=== PATIENT | female | born 1940 | race African-American/Black ===

== ENCOUNTER 2019-10-20 14:43 | Inpatient (IN) | payer OTHER ==
[2019-10-20] MEDS ORDERED: ACETAMINOPHEN 1000 MG/100 ML VIAL (NON FORMULARY) IVPB ONE (15:46)
[2019-10-20] MEDS ORDERED: SODIUM CHLORIDE 0.9% 500 ML INFUS.BAG IV ONE (15:47)
--- NOTE | 2019-10-20 15:49 | PDOC ---
History of Present Illness - General Chief Complaint: Weakness Stated Complaint: Weakness/ Time Seen by Provider: 10/20/19 15:13 History Source: Patient Exam Limitations: No Limitations - History of Present Illness Initial Comments: 79 yo F with a hx of atrial fibrillation (currently on warfarin; 5 mg q day 7.5 mg on wednesdays), HTN, CVA (1999; right sided residual weakness), HLD, CHF ( unknown EF%), and pacemaker placement presents to the emergency department with cough, generalized weakness, and SOB since this morning. Per the patient, she normally is seen at [facility] (her PMD is Dr. Fan and her fairing man is Dr. Chadwick). Her last stress test was 3 months ago and was within normal limits per the patient's daughter. She denies using home O2. She is currently on lasix 20 mg qday. Per the patient, she denies the following symptoms: fever, chills, nausea, vomiting, abdominal pain, back pain, headache, ears/nose/throat pain, visual disturbance, dysuria, diarrhea, and leg pain/ swelling. Past History - Past Medical History Allergies/Adverse Reactions: Allergies Allergy/AdvReac Type Severity Reaction Status Date / Time No Known Allergies Allergy Verified 10/20/19 15:30 Home Medications: Ambulatory Orders Amlodipine Besylate [Norvasc -] 10 mg PO DAILY 10/20/19 Furosemide [Lasix] 20 mg PO DAILY 10/20/19 Losartan Potassium [Cozaar] 100 mg PO DAILY 10/20/19 Metoprolol Tartrate 25 mg PO BID 10/20/19 Potassium Chloride 20 meq PO BID 10/20/19 Simvastatin [Zocor] 20 mg PO HS 10/20/19 Warfarin Na [Coumadin] 5 mg PO ASDIR 10/20/19 Warfarin Sodium [Coumadin] 7.5 mg PO ASDIR 10/20/19 hydrALAZINE HCL [Apresoline -] 10 mg PO TID 10/20/19 LORazepam [Lorazepam] 1 mg PO BID PRN 10/21/19 Cardiac Disorders: Yes (a fib/heart surgery?) CVA: Yes (right sided weakness.) COPD: No HTN: Yes Hypercholesterolemia: Yes - Psycho Social/Smoking Cessation Hx Smoking History: Never smoked Have you smoked in the past 12 months: No Information on smoking cessation initiated: No Hx Alcohol Use: No Drug/Substance Use Hx: No Review of Systems - Review of Systems Able to Perform ROS?: Yes Is the patient limited Kazakh proficient: No Constitutional: Yes: Fever, Weakness. No: Chills, Diaphoresis HEENTM: No: Eye Pain, Ear Pain, Nose Pain, Throat Pain, Mouth Pain Respiratory: Yes: Cough, Shortness of Breath, SOB at Rest. No: Hemoptysis Cardiac (ROS): No: Chest Pain, Lightheadedness, Palpitations, Chest Tightness ABD/GI: No: Constipated, Diarrhea, Nausea, Rectal Bleeding, Vomiting, Tarry Stools : No: Dysuria, Frequency, Flank Pain, Hematuria Musculoskeletal: No: Back Pain, Joint Pain, Neck Pain Integumentary: No: Bruising, Erythema, Rash Neurological: No: Headache, Numbness, Tingling, Tremors Psychiatric: No: Change in Appetite Endocrine: No: Unexplained Weight Gain, Unexplained Weight Loss Hematologic/Lymphatic: No: Anemia *Physical Exam - Vital Signs Last Vital Signs Temp Pulse Resp BP Pulse Ox 101.9 F H 70 16 165/93 100 10/20/19 15:38 10/20/19 15:00 10/20/19 15:00 10/20/19 15:00 10/20/19 15:00 - Physical Exam General Appearance: Yes: Nourished, Appropriately Dressed, Thin, Other (patient general appearance consistent with malaise. ). No: Apparent Distress, Intoxicated HEENT: positive: EOMI, GEORGE, Normal Voice, Symmetrical, Pharynx Normal, Scleral Icterus (R), Scleral Icterus (L), Hearing Grossly Normal. negative: Pale Conjunctivae, Muffled/Hoarse voice, Pharyngeal Erythema, Tonsillar Exudate, Tonsillar Erythema, Nasal Congestion, Rhinorrhea, Sinus Tenderness, Excessive drooling Neck: positive: Trachea midline, Supple. negative: Tender, Lymphadenopathy (R) , Lymphadenopathy (L), Tender lateral, Tender midline Respiratory/Chest: positive: Other (bilateral wheezing noted with crackles at the bases. decreased breath sounds). negative: Chest Tender, Lungs Clear, Normal Breath Sounds, Respiratory Distress, Accessory Muscle Use Cardiovascular: positive: Regular Rate, S1, S2, Systolic Murmur (holosystolic murmur), Irregularly Irregular Gastrointestinal/Abdominal: positive: Normal Bowel Sounds, Flat, Soft. negative : Tender, Distended, Guarding, Rebound Lymphatic: negative: Adenopathy Musculoskeletal: positive: Normal Inspection. negative: CVA Tenderness, Vertebral Tenderness Extremity: positive: Normal Capillary Refill, Normal Inspection, Normal Range of Motion. negative: Tender, Swelling, Calf Tenderness Integumentary: positive: Normal Color, Dry, Warm Neurologic: positive: Alert. negative: Normal Mood/Affect (malaise. weak on exam) ED Treatment Course - LABORATORY CBC & Chemistry Diagram: 10/21/19 07:15 10/21/19 07:15 - RADIOLOGY Radiology Studies Ordered: Category Date Time Status CHEST X-RAY PORTABLE* [RAD] Stat Radiology 10/20/19 15:40 Ordered Medical Decision Making - Medical Decision Making 10/20/19 17:32 79 yo F with a hx of atrial fibrillation (currently on warfarin; 5 mg q day 7.5 mg on wednesdays), HTN, CVA (1999; right sided residual weakness), HLD, CHF ( unknown EF%), and pacemaker placement presents to the emergency department with cough, generalized weakness, and SOB since this morning. Initial vitals: Initial Vital Signs Temp Pulse Resp BP Pulse Ox 98.6 F 70 16 165/93 100 10/20/19 15:00 10/20/19 15:00 10/20/19 15:00 10/20/19 15:00 10/20/19 15:00 Work up: patient presents to the emergency department with SOB in the setting of generalized weakness with a rectal temperature of 101.9 F. Will require septic work up. Likely the patient is having a CHF exacerbation given crackles and hypoxia (currently saturating at 98% on 3 liters of O2; not on home O2). Was 92 % on RA. POCUS: echo at bedside reveals grossly normal LVEF. RV grossly dilated with thickened montes. Right atrium grossly dilated. Patient has small pericardial effusion without evidence of tamponade. possible vegetations noted on the tricuspid valve. The patient's lung exam shows b lines on the right lung with no pleural effusions bilaterally. left lung does not have b lines. IVC is severely distended without collapse. Consistent with Right sided heart failure. Laboratory Tests 10/20/19 10/20/19 10/20/19 07:15 15:30 15:30 WBC 5.5 RBC 3.89 Hgb 9.9 L Hct 31.6 L MCV 81.2 MCH 25.5 L MCHC 31.4 L RDW 19.9 H Plt Count 171 MPV 9.1 Absolute Neuts (auto) 4.6 Neutrophils % 82.9 H Lymphocytes % 6.9 L Monocytes % 9.9 Eosinophils % 0.1 Basophils % 0.2 Nucleated RBC % 0 PT with INR INR PTT (Actin FS) Sodium Potassium Chloride Carbon Dioxide Anion Gap BUN Creatinine Est GFR (CKD-EPI)AfAm Est GFR (CKD-EPI)NonAf POC Glucometer Random Glucose Lactic Acid 1.8 Calcium Magnesium Total Bilirubin AST ALT Alkaline Phosphatase Creatine Kinase 144 Troponin I 0.05 B-Natriuretic Peptide Total Protein Albumin Urine Color Urine Appearance Urine pH Ur Specific [place] Urine Protein Urine Glucose (UA) Urine Ketones Urine Blood Urine Nitrite Urine Bilirubin Urine Urobilinogen Ur Leukocyte Esterase Urine WBC (Auto) Urine RBC (Auto) Urine Casts (Auto) U Epithel Cells (Auto) Urine Bacteria (Auto) Influenza A (Rapid) Influenza B (Rapid) 10/20/19 10/20/19 10/20/19 15:30 15:30 15:30 WBC RBC Hgb Hct MCV MCH MCHC RDW Plt Count MPV Absolute Neuts (auto) Neutrophils % Lymphocytes % Monocytes % Eosinophils % Basophils % Nucleated RBC % PT with INR INR PTT (Actin FS) Sodium 130 L Potassium 3.7 Chloride 94 L Carbon Dioxide 28 Anion Gap 8 BUN 6.9 L Creatinine 0.7 Est GFR (CKD-EPI)AfAm 96.86 Est GFR (CKD-EPI)NonAf 83.57 POC Glucometer Random Glucose 136 H Lactic Acid 4.8 H* Calcium 8.6 Magnesium 1.9 Total Bilirubin 1.4 H AST 41 H ALT 29 Alkaline Phosphatase 167 H Creatine Kinase Troponin I B-Natriuretic Peptide 3613.1 H Total Protein 8.2 Albumin 3.6 Urine Color Urine Appearance Urine pH Ur Specific [place] Urine Protein Urine Glucose (UA) Urine Ketones Urine Blood Urine Nitrite Urine Bilirubin Urine Urobilinogen Ur Leukocyte Esterase Urine WBC (Auto) Urine RBC (Auto) Urine Casts (Auto) U Epithel Cells (Auto) Urine Bacteria (Auto) Influenza A (Rapid) Influenza B (Rapid) 10/20/19 10/20/19 10/20/19 15:48 17:26 17:55 WBC RBC Hgb Hct MCV MCH MCHC RDW Plt Count MPV Absolute Neuts (auto) Neutrophils % Lymphocytes % Monocytes % Eosinophils % Basophils % Nucleated RBC % PT with INR 16.50 H INR 1.39 H PTT (Actin FS) 32.8 Sodium Potassium Chloride Carbon Dioxide Anion Gap BUN Creatinine Est GFR (CKD-EPI)AfAm Est GFR (CKD-EPI)NonAf POC Glucometer 153 Random Glucose Lactic Acid Calcium Magnesium Total Bilirubin AST ALT Alkaline Phosphatase Creatine Kinase Troponin I B-Natriuretic Peptide Total Protein Albumin Urine Color Urine Appearance Urine pH Ur Specific [place] Urine Protein Urine Glucose (UA) Urine Ketones Urine Blood Urine Nitrite Urine Bilirubin Urine Urobilinogen Ur Leukocyte Esterase Urine WBC (Auto) Urine RBC (Auto) Urine Casts (Auto) U Epithel Cells (Auto) Urine Bacteria (Auto) Influenza A (Rapid) Negative Influenza B (Rapid) Negative 10/20/19 18:20 WBC RBC Hgb Hct MCV MCH MCHC RDW Plt Count MPV Absolute Neuts (auto) Neutrophils % Lymphocytes % Monocytes % Eosinophils % Basophils % Nucleated RBC % PT with INR INR PTT (Actin FS) Sodium Potassium Chloride Carbon Dioxide Anion Gap BUN Creatinine Est GFR (CKD-EPI)AfAm Est GFR (CKD-EPI)NonAf POC Glucometer Random Glucose Lactic Acid Calcium Magnesium Total Bilirubin AST ALT Alkaline Phosphatase Creatine Kinase Troponin I B-Natriuretic Peptide Total Protein Albumin Urine Color Yellow Urine Appearance Clear Urine pH 5.5 Ur Specific [place] 1.014 Urine Protein 2+ H Urine Glucose (UA) Negative Urine Ketones Negative Urine Blood Trace Urine Nitrite Negative Urine Bilirubin Negative Urine Urobilinogen 0.2 Ur Leukocyte Esterase Negative Urine WBC (Auto) 0 Urine RBC (Auto) 3 Urine Casts (Auto) 0 U Epithel Cells (Auto) 0.8 Urine Bacteria (Auto) 0.7 Influenza A (Rapid) Influenza B (Rapid) BNP elevated. AST elevated with alk phos elevation suspected hepatic etiology. lactic acid grossly elevated with hyponatremia likely secondary to SIADH in setting of PNA. CXR shows gross cardiomegaly and pericardial effusion that cannot be excluded. Because of POCUS findings, a CT chest was obtained. findings include the following: "right basilar infiltrate seen with an opacity noted 3x2.3 cm containing air bronchograms is seen within the superior segment of the right lower lobe. 0.9 cm subpleural opacity is seen within the right upper lobe laterally. Small pericardial effusion noted with the main pulmonary artery dilated with a 3.6 cm consistent with increased pulmonary arterial pressure. Distension of the hepatic veins and partially imaged inferior vena cava presumably secondary to cardiac dysfunction. small amount of robbin-hepatic aneurysmal dilatation of the ascending aorta with a 4 cm diameter. " vancomycin, ceftriaxone, and azithromycin were started to cover community acquired PNA and suspected endocarditis with staph aureus coverage EKG: ventricular rate is 68 bpm. QRS is 112 ms. Ventricular paced rhythm. Tall t waves in leads V4-V6 with pace spikes prior to QRS. biphasic t wave in V2 and TWI in V3. Patient to be admitted to the hospital with PNA with sepsis features with hypoxic respiratory failure. Dispo: Admit 10/21/19 10:38 Discharge - Discharge Information Problems reviewed: Yes Clinical Impression/Diagnosis: Pneumonia - Follow up/Referral - Patient Discharge Instructions - Post Discharge Activity
[2019-10-20] MEDS ORDERED: ACETAMINOPHEN INJECTION 100 ML IVPB ONE (15:57)
[2019-10-20 16:30] LABS: BASO % 0.2 % (0-2.0); EOS % 0.1 % (0-4.5); HEMATOCRIT 31.6 % (32.4-45.2); HEMOGLOBIN 9.9 GM/dL (10.7-15.3); LYMPH % 6.9 % (8-40); MCH 25.5 pg (25.7-33.7); MCHC 31.4 g/dl (32.0-36.0); MEAN CELL VOLUME 81.2 fl (80-96); MEAN PLT VOLUME 9.1 fl (7.5-11.1); MONO % 9.9 % (3.8-10.2); NEUT % 82.9 % (42.8-82.8); PLATELET COUNT 171 K/MM3 (134-434); RBC 3.89 M/mm3 (3.60-5.2); RDW 19.9 % (11.6-15.6); WHITE BLOOD COUNT 5.5 K/mm3 (4.0-10.0)
--- NOTE | 2019-10-20 16:47 | PDOC ---
Attending Attestation - Resident Resident Name: Adrián Pierce - ED Attending Attestation I have performed the following: I have examined & evaluated the patient, The case was reviewed & discussed with the resident, I agree w/resident's findings & plan - HPI HPI: 10/20/19 16:47 79-year-old female with history of atrial fibrillation on Coumadin, CHF, hypertension, CVA with residual right lower and upper extremity weakness, pacemaker placement presenting with cough shortness of breath subjective fevers and chills since last night. no sick contacts, no recent travel. 10/20/19 19:34 - Physicial Exam PE: 10/20/19 16:46 Agree with the resident's HPI and PE as documented in the electronic medical record. moderate respiratory distress, EOMI, PERRL, nl conjunctiva, anicteric; neck supple. lungs with bilateral wheezing and crackles/rhonchi, +tachypneic, RRR, abdomen soft nontender. no rebound, guarding. Back nontender. MARTINS x4, +right sided weakness (chronically). No peripheral edema. normal color for ethnicity, WWP. no rash. no calf tenderness 10/20/19 19:49 - Medical Decision Making 10/20/19 16:46 Vital Signs Temp Pulse Resp BP Pulse Ox 101.9 F H 70 16 165/93 92 L 10/20/19 15:38 10/20/19 15:00 10/20/19 15:00 10/20/19 15:00 10/20/19 15:30 ddx influenza, pna, viral syndrome, pulm edema, CHF, ptx, pleurisy, anemia,, electrolyte/metabolic derangements. Vital signs notable for fever, T-max 1-1.9 rectally, mildly hypertensive, SPO2 90% on room air will place on supplemental oxygen. No tachycardia. Malaised appearing. We will pursue septic work-up including cultures, lactic, came back elevated at 4.8. Will be copiously hydrated. Flu is negative, chest x-ray with cardiomegaly Laboratory results with mild anemia, no baseline no evidence of bleeding. Hyponatremia, troponins negative and LFTs are within normal limits. flu neg. initial lactic elevated 4.8 likely from infection, given IVF gently (h/o chf, will give only 500cc and fluid challenge,, and reassess; initial 1 L cancelled, ordered initially due to sepsis) - no further fluids as risk of pulm edema, ok with 500cc challenge and recheck and trend lactic. blood cultures pending. pneumonia workup sent, urine ag for legionella and pneumo IV abx- ceftriaxone and azithromycin for CAP and vancomycin (tricuspid thickening, unable to rule out the vegetation, as pt ccame from [place] years ago ) pocus with right sided b lines, unilateral; no effusion, no sig B lines, kirby with pneumonia pocus cardiac with normal LV function,, but very dilated and enlarged RV/RA compared to contralateral, appears compensated/old due to presence of chordae tendinae. small /trace pericardial effusion. admit for CAP/pneumonia, hypoxia, IV abx, hydration, O2 supplementation and continued medical management. admitting to [facility]. 10/20/19 19:46 10/20/19 19:49 10/20/19 19:50 Heart Score/ECG Review #1 ECG reviewed & interpreted by me at: 17:55 General ECG Interpretation: Sinus Rhythm, Normal Rate Compared to previous ECG there are: Previous ECG unavail 10/20/19 18:51 Sinus rhythm at 60 bpm, left bundle branch appearance, pacemaker is in place, nonspecific T wave abnormalities, limitations due to the artifact,
[2019-10-20 16:52] LABS: ALBUMIN 3.6 g/dl (3.4-5.0); BILIRUBIN,TOTAL 1.4 mg/dL (0.2-1); BLOOD UREA NITROGEN 6.9 mg/dL (7-18); CALCIUM 8.6 mg/dL (8.5-10.1); CREATININE 0.7 mg/dL (0.55-1.3); MAGNESIUM 1.9 mg/dL (1.8-2.4); POTASSIUM 3.7 mmol/L (3.5-5.1); TOT PROT 8.2 g/dl (6.4-8.2)
[2019-10-20] MEDS ORDERED: CEFTRIAXONE 1,000 MG in DEXTROSE 5%-WATER - 50 ML IVPB ONE (17:17)
[2019-10-20] MEDS ORDERED: AZITHROMYCIN IVPB 500 MG in DEXTROSE 5%-WATER - 250 ML IVPB ONE (17:17)
[2019-10-20] MEDS ORDERED: VANCOMYCIN 1,000 MG in DEXTROSE 5%-WATER - 250 ML IVPB ONE (17:17)
[2019-10-20] MEDS ORDERED: ALBUTEROL SO4 2.5/IPRATROPIUM 0.5 INH SOL 3 ML VIAL.NEB. NEB ONE ×3 (17:17→18:00)
[2019-10-20] MEDS ORDERED: SODIUM CHLORIDE 500 ML IV STA (17:27)
[2019-10-20] MEDS ORDERED: CEFTRIAXONE 1 GM/50 ML BAG ONE (17:41)
[2019-10-20] MEDS ORDERED: VANCOMYCIN 1 GRAM (PRE-DOCKED) 1,000 MG/250 ML BAG IVPB ONE (17:41)
[2019-10-20] MEDS ORDERED: AZITHROMYCIN IVPB 500 MG/250 ML BAG IVPB ONE (17:41)
[2019-10-20 18:36] LABS: INR 1.39 (0.83-1.09); PROTHROMBIN TIME (PATIENT) 16.5 SEC (9.7-13.0)
[2019-10-20 18:39] LABS: ACTIVATED PTT 32.8 SECONDS (25.2-36.5)
[2019-10-20 18:45] LABS: EPI CELLS 0.8 /HPF (0-5/HPF); HYALINE CASTS 0 /lpf (0-8); PH,URINE 5.5 (5.0-8.0); URINE APPEARANCE CLEAR; URINE BACTERIA 0.7 /hpf (NEGATIVE); URINE BILIRUBIN NEGATIVE (NEGATIVE); URINE COLOR YELLOW; URINE GLUCOSE (UA) NEGATIVE (NEGATIVE); URINE KETONE NEGATIVE (NEGATIVE); URINE LEUK ESTERASE NEGATIVE (NEGATIVE); URINE NITRITE NEGATIVE (NEGATIVE); URINE PROTEIN 2+ (NEGATIVE); URINE RBC 3 /hpf (0-4); URINE UROBILINOGEN 0.2 mg/dL (0.2-1.0); URINE WBC 0 /hpf (0-5)
--- NOTE | 2019-10-20 20:50 | HP ---
CHIEF COMPLAINT: Fevers PCP: Dr. Fan HISTORY OF PRESENT ILLNESS: Patient is limited grenadian speaker so family at bedside helped translate. 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 Family endorses that patient had shortness of breath, was more lethargic today, had no appetite and poor PO intake so they brought her to [facility]. Fever has been accompanied with a nonproductive cough. Patient did not measure her temperatures at home. Patient has not had any rhinorrhea or congestion since subjective fevers began. Patient endorses nausea and vomiting over the last day , but unable to quantify how many times she has had emesis and characterize quality of it. Patient denies diarrhea and abdominal pain. Of note family mentions that patient has a sick contact at home, a toddler (age 5) who the patient is staying with who presented to the [facility] with fever of 103 today. Patient denies any chest pain, pleuritic pain, headaches, myalgias, dysuria and hematuria. ER course was notable for: (1)Rectal temperature showed 101.9. Patient was given azithromycin 500 mg, ceftriaxone 1 gram, and Vancomycin 1 gram. (2)EKG showed Sinus rhythm at 60 bpm, left bundle branch appearance, pacemaker is in place, nonspecific T wave abnormalities, limitations due to the artifact (3)Chest X-Ray showed Gross cardiomegaly and pericardial effusion cannot be excluded, and chest CT showed: Right basilar infiltrates infiltrate in the upper lobe. 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 cervical spine surgery Social History: Smoking:denies Alcohol:denies Drugs: denies Allergies No Known Allergies Allergy (Verified 10/20/19 15:30) HOME MEDICATIONS: Home Medications Medication Instructions Recorded Amlodipine Besylate [Norvasc -] 10 mg PO DAILY 10/20/19 Furosemide [Lasix] 20 mg PO DAILY 10/20/19 Losartan Potassium [Cozaar] 100 mg PO DAILY 10/20/19 Metoprolol Tartrate 25 mg PO BID 10/20/19 Potassium Chloride 20 meq PO BID 10/20/19 Simvastatin [Zocor] 20 mg PO HS 10/20/19 Warfarin Na [Coumadin] 5 mg PO ASDIR 10/20/19 Warfarin Sodium [Coumadin] 7.5 mg PO ASDIR 10/20/19 hydrALAZINE HCL [Apresoline -] 10 mg PO TID 10/20/19 REVIEW OF SYSTEMS CONSTITUTIONAL: fever, loss of appetite Absent: chills, diaphoresis, generalized weakness, malaise, weight change HEENT: Absent: rhinorrhea, nasal congestion, throat pain, throat swelling, difficulty swallowing, mouth swelling, ear pain, eye pain, visual changes CARDIOVASCULAR: Absent: chest pain, syncope, palpitations, irregular heart rate, lightheadedness , peripheral edema RESPIRATORY: shortness of breath, cough, Absent: dyspnea with exertion, orthopnea, wheezing, stridor, hemoptysis GASTROINTESTINAL:, nausea, vomiting Absent: abdominal pain, abdominal distension, diarrhea, constipation, melena, hematochezia GENITOURINARY: Absent: dysuria, frequency, urgency, hesitancy, hematuria, flank pain, genital pain MUSCULOSKELETAL: Absent: myalgia, arthralgia, joint swelling, back pain, neck pain SKIN: Absent: rash, itching, pallor ENDOCRINE: Absent: unexplained weight gain, unexplained weight loss, heat intolerance, cold intolerance NEUROLOGIC: Absent: headache, focal weakness or paresthesias, dizzines PHYSICAL EXAMINATION Vital Signs - 24 hr 10/20/19 10/20/19 10/20/19 15:00 15:30 15:38 Temperature 98.6 F 101.9 F H Pulse Rate 70 Pulse Rate [ Apical] Respiratory 16 Rate Blood Pressure 165/93 Blood Pressure [Right Arm] O2 Sat by Pulse 100 92 L Oximetry (%) 10/20/19 18:29 Temperature 98.3 F Pulse Rate Pulse Rate [ 79 Apical] Respiratory 19 Rate Blood Pressure Blood Pressure 154/85 [Right Arm] O2 Sat by Pulse 96 Oximetry (%) GENERAL: Awake, alert, and fully oriented, in no acute distress. HEAD: Normal with no signs of trauma. EYES: Pupils equal, round and reactive to light, extraocular movements intact, sclera anicteric, conjunctiva clear. No lid lag. EARS, NOSE, THROAT: Moist mucous membranes. NECK: Normal range of motion, supple without lymphadenopathy, JVD, or masses. LUNGS: Decreased breath sounds in right lung, wheezing heard throughout left lung. HEART: Regular rate and rhythm, normal S1 and S2 without murmur, rub or gallop. ABDOMEN: Soft, nontender, not distended, normoactive bowel sounds, no guarding, no rebound, no masses. No hepatomegaly or splenomegaly. MUSCULOSKELETAL: Normal range of motion at all joints. No bony deformities or tenderness. UPPER EXTREMITIES: 2+ pulses, warm, well-perfused. No cyanosis. No clubbing. No peripheral edema. LOWER EXTREMITIES: 2+ pulses, warm, well-perfused. No calf tenderness. No peripheral edema. NEUROLOGICAL: Cranial nerves II-XII intact. Normal speech. Normal gait. PSYCHIATRIC: Cooperative. Good eye contact. Appropriate mood and affect. SKIN: Warm, dry, normal turgor, no rashes or lesions noted, normal capillary refill. Laboratory Results - last 24 hr 10/20/19 10/20/19 10/20/19 15:30 15:30 15:30 WBC 5.5 RBC 3.89 Hgb 9.9 L Hct 31.6 L MCV 81.2 MCH 25.5 L MCHC 31.4 L RDW 19.9 H Plt Count 171 MPV 9.1 Absolute Neuts (auto) 4.6 Neutrophils % 82.9 H Lymphocytes % 6.9 L Monocytes % 9.9 Eosinophils % 0.1 Basophils % 0.2 Nucleated RBC % 0 PT with INR INR PTT (Actin FS) Sodium 130 L Potassium 3.7 Chloride 94 L Carbon Dioxide 28 Anion Gap 8 BUN 6.9 L Creatinine 0.7 Est GFR (CKD-EPI)AfAm 96.86 Est GFR (CKD-EPI)NonAf 83.57 POC Glucometer Random Glucose 136 H Lactic Acid Calcium 8.6 Magnesium 1.9 Total Bilirubin 1.4 H AST 41 H ALT 29 Alkaline Phosphatase 167 H Creatine Kinase 144 Troponin I 0.05 B-Natriuretic Peptide Total Protein 8.2 Albumin 3.6 Urine Color Urine Appearance Urine pH Ur Specific Vista Urine Protein Urine Glucose (UA) Urine Ketones Urine Blood Urine Nitrite Urine Bilirubin Urine Urobilinogen Ur Leukocyte Esterase Urine WBC (Auto) Urine RBC (Auto) Urine Casts (Auto) U Epithel Cells (Auto) Urine Bacteria (Auto) Influenza A (Rapid) Influenza B (Rapid) 10/20/19 10/20/19 10/20/19 15:30 15:30 15:48 WBC RBC Hgb Hct MCV MCH MCHC RDW Plt Count MPV Absolute Neuts (auto) Neutrophils % Lymphocytes % Monocytes % Eosinophils % Basophils % Nucleated RBC % PT with INR INR PTT (Actin FS) Sodium Potassium Chloride Carbon Dioxide Anion Gap BUN Creatinine Est GFR (CKD-EPI)AfAm Est GFR (CKD-EPI)NonAf POC Glucometer Random Glucose Lactic Acid 4.8 H* Calcium Magnesium Total Bilirubin AST ALT Alkaline Phosphatase Creatine Kinase Troponin I B-Natriuretic Peptide 3613.1 H Total Protein Albumin Urine Color Urine Appearance Urine pH Ur Specific Vista Urine Protein Urine Glucose (UA) Urine Ketones Urine Blood Urine Nitrite Urine Bilirubin Urine Urobilinogen Ur Leukocyte Esterase Urine WBC (Auto) Urine RBC (Auto) Urine Casts (Auto) U Epithel Cells (Auto) Urine Bacteria (Auto) Influenza A (Rapid) Negative Influenza B (Rapid) Negative 10/20/19 10/20/19 10/20/19 17:26 17:55 18:20 WBC RBC Hgb Hct MCV MCH MCHC RDW Plt Count MPV Absolute Neuts (auto) Neutrophils % Lymphocytes % Monocytes % Eosinophils % Basophils % Nucleated RBC % PT with INR 16.50 H INR 1.39 H PTT (Actin FS) 32.8 Sodium Potassium Chloride Carbon Dioxide Anion Gap BUN Creatinine Est GFR (CKD-EPI)AfAm Est GFR (CKD-EPI)NonAf POC Glucometer 153 Random Glucose Lactic Acid Calcium Magnesium Total Bilirubin AST ALT Alkaline Phosphatase Creatine Kinase Troponin I B-Natriuretic Peptide Total Protein Albumin Urine Color Yellow Urine Appearance Clear Urine pH 5.5 Ur Specific Vista 1.014 Urine Protein 2+ H Urine Glucose (UA) Negative Urine Ketones Negative Urine Blood Trace Urine Nitrite Negative Urine Bilirubin Negative Urine Urobilinogen 0.2 Ur Leukocyte Esterase Negative Urine WBC (Auto) 0 Urine RBC (Auto) 3 Urine Casts (Auto) 0 U Epithel Cells (Auto) 0.8 Urine Bacteria (Auto) 0.7 Influenza A (Rapid) Influenza B (Rapid) Imaging: Chest X-ray: Gross cardiomegaly and pericardial effusion cannot be excluded Chest CT: Right basilar infiltrate Note is also made of a 3 x 2.3 cm opacity containing air bronchograms within the superior segment of the right lower lobe probably representing an additional infiltrate, and much less likely a pulmonary nodule. Correlation with 3 month follow-up CT is suggested to document resolution. Note is also made of a 0.9 cm right upper lobe subpleural opacity laterally which may represent focal scarring, atelectasis versus a groundglass pulmonary nodule. Reevaluation at the time of 3 month follow-up CT is suggested. Marked cardiomegaly. Small pericardial effusion. Dilated main pulmonary artery consistent with increased pulmonary arterial pressure. There is distention of the hepatic veins and partially imaged inferior vena cava secondary to cardiac dysfunction. Bilateral flank subcutaneous edema. Small amount of perihepatic ascites. Borderline fusiform aneurysmal dilatation of the ascending aorta with a 4 cm diameter. 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 1)Sepsis secondary to community-acuired pneumonia with hypoxic respiratory failure -Fever of 101.9F -Lactic initially 4.8 and trended up on repeat. F/U Repeat lactic -F/U Blood culture -F/U Sputum culture -F/U legionalla antigen -F/U HIV serology -F/U Hep B and Hep C panel -Ceftriaxone 2 gram IV Q24 hours. -Azithromycin 500 mg IV Daily -Given unknown cardiac function, will give gentle hydration and hold lasix. 2)Acute Respiratory Distress -Patient on 2L NC and saturating at 98% -F/U ABG 3)POCUS showed possible cardiac valvular vegetations -Transthoracic echo -Cardiology evaluation 4)AFib on Coumadin with subtherapeutic INR -Warfarin 5 mg PO Daily for 5 days a week -Warfarin 7.5 mg PO daily for 2 days a week -Heparin drip as we bridge -Repeat INR/PT 5)Normocytic anemia -Follow CBC -F/U Iron studies -F/U TSH 6)Transaminits -Sergio avoid hepatotoxic agents -RUQ sonogram -Hepatitis panel 7)Hyponatremia -Na of 130 on admissoin -Possible SIADH -F/U Urine osmole, serum osmoles, urine electrolytes, TSH DVT Prophylaxis: Heparin Drip F: Oral Hydration E: Monitor CMP N: Regular diet Dispo: Admitted to medicine. Visit type - Emergency Visit Emergency Visit: Yes ED Registration Date: 10/20/19 Care time: The patient presented to the Emergency Department on the above date and was hospitalized for further evaluation of their emergent condition. - New Patient This patient is new to me today: Yes Date on this admission: 10/21/19 - Critical Care Critical Care patient: No ATTENDING PHYSICIAN STATEMENT I saw and evaluated the patient. I reviewed the resident's note and discussed the case with the resident. I agree with the resident's findings and plan as documented. SUBJECTIVE: OBJECTIVE: ASSESSMENT AND PLAN:
--- NOTE | 2019-10-20 21:47 | PN ---
Teaching Attending Note Name of Resident: Love Aldana ATTENDING PHYSICIAN STATEMENT I saw and evaluated the patient. I reviewed the resident's note and discussed the case with the resident. I agree with the resident's findings and plan as documented. SUBJECTIVE: 79 yo Woman from [facility] with a hx of atrial fibrillation on coumadin, HTN, CVA w/ right sided residual weakness, HLD, CHF, s/p pacemaker placement presents complaining of productive cough, weakness and shortness of breath since 2018 a.m. No recent travels or sick contacts. OBJECTIVE: Last Vital Signs Temp Pulse Resp BP Pulse Ox 99.5 F 70 19 134/69 97 10/20/19 21:16 10/20/19 21:11 10/20/19 21:11 10/20/19 21:11 10/20/19 21:11 GENERAL: Well developed, well nourished. Awake and alert. No acute distress. HEENT: Normocephalic, atraumatic. PERRLA, EOMI. No conjunctival pallor. Sclera are non- icteric. Moist mucous membranes. Oropharynx is clear. NECK: Supple. Full ROM. No JVD. Carotid pulses 2+ and symmetric, without bruits. No thyromegaly. No lymphadenopathy. CARDIOVASCULAR: Regular rate and rhythm. No murmurs, rubs, or gallops. Distal pulses are 2+ and symmetric. PULMONARY: No evidence of respiratory distress. Lungs clear to auscultation bilaterally. Right middle and lower lobe crackles/rhonchi ABDOMINAL: Soft. Non-tender. Non-distended. No rebound or guarding. No organomegaly. Normoactive bowel sounds. MUSCULOSKELETAL Normal range of motion at all joints. No bony deformities or tenderness. No CVA tenderness. EXTREMITIES: No cyanosis. No clubbing. No edema. No calf tenderness. SKIN: Warm and dry. Normal capillary refill. No rashes. No jaundice. PSYCHIATRIC: Cooperative. Good eye contact. Appropriate mood and affect. Abnormal Lab Results 10/20/19 10/20/19 10/20/19 15:30 15:30 15:30 Hgb 9.9 L Hct 31.6 L MCH 25.5 L MCHC 31.4 L RDW 19.9 H Neutrophils % 82.9 H Lymphocytes % 6.9 L PT with INR INR Sodium 130 L Chloride 94 L BUN 6.9 L Random Glucose 136 H Lactic Acid 4.8 H* Total Bilirubin 1.4 H AST 41 H Alkaline Phosphatase 167 H B-Natriuretic Peptide Urine Protein 10/20/19 10/20/19 10/20/19 15:30 17:55 18:20 Hgb Hct MCH MCHC RDW Neutrophils % Lymphocytes % PT with INR 16.50 H INR 1.39 H Sodium Chloride BUN Random Glucose Lactic Acid Total Bilirubin AST Alkaline Phosphatase B-Natriuretic Peptide 3613.1 H Urine Protein 2+ H 10/20/19 20:15 Hgb Hct MCH MCHC RDW Neutrophils % Lymphocytes % PT with INR INR Sodium Chloride BUN Random Glucose Lactic Acid 5.0 H* Total Bilirubin AST Alkaline Phosphatase B-Natriuretic Peptide Urine Protein Imaging studies reviewed Chest CT without contrast appreciatedapproximately 3 x 2.3 cm opacity containing air bronchograms is seen within the superior segment of the right lower lobe. Additional mild patchy opacities seen within the basilar segments of the right lower lobe consistent with infiltrates ASSESSMENT AND PLAN: Sepsis secondary to community-acquired pneumonia with right with hypoxic resp failure- fever of 101F, lactic acidosis blood cultures sputum culture urine legionella antigen urine pneumococcal ag ceftriaxone 2G IV q24hrs azithromycin 500mg IV daily supplemental oxygen via nasal cannula Repeat ABG Repeat lactic acid HIV serology, hepatitis B and C serology #Rule out cardiac valvular vegetations Transthoracic echo Cardiology evaluation #Atrial fibrillation On anticoagulation- subtherapeutic inr Continue with heparin drip Continue with home dose Coumadin Morning INR/PT #HTN #CVA with right sided residual weakness #Normocytic anemia Trend CBC Send iron studies Send ferritin Send vitamin B12 Send TSH #Transaminitis Avoid hepatotoxins Liver sonogram Viral hepatitis panels were ordered #Hyponatremiasuspect possible SIADH especially in light of pneumonia Send urine osmoles, serum osmoles, urine lites, TSH DVT prophylaxisheparin drip
[2019-10-20] MEDS ORDERED: HEPARIN NA (PORCINE) 5,000 UNITS/ML 1ML VIAL IVPUSH PRN ×2 (23:07)
[2019-10-21] MEDS ORDERED: CEFTRIAXONE 1 GM in DEXTROSE 5%-WATER - 50 ML IVPB ONE (00:51)
[2019-10-21] MEDS: HEPARIN - 25,000 UNIT in SODIUM CHLORIDE 495 ML IV SCH ×2 (02:07→08:48)
[2019-10-21] MEDS ORDERED: SODIUM CHLORIDE 1,000 ML IV SCH (06:15)
[2019-10-21] MEDS: hydrALAZINE HCL 10 MG TABLET PO SCH ×3 (06:26→22:23)
[2019-10-21 08:11] LABS: BASO % 0.3 % (0-2.0); HEMATOCRIT 30.9 % (32.4-45.2); HEMOGLOBIN 9.9 GM/dL (10.7-15.3); MCH 25.8 pg (25.7-33.7); MCHC 32.2 g/dl (32.0-36.0); MEAN CELL VOLUME 80.1 fl (80-96); MEAN PLT VOLUME 9.6 fl (7.5-11.1); MONO % 15.8 % (3.8-10.2); NEUT % 66.9 % (42.8-82.8); PLATELET COUNT 159 K/MM3 (134-434); RBC 3.86 M/mm3 (3.60-5.2); RDW 19.7 % (11.6-15.6)
[2019-10-21 08:33] LABS: INR 1.46 (0.83-1.09); PROTHROMBIN TIME (PATIENT) 17.3 SEC (9.7-13.0)
[2019-10-21 08:44] LABS: BILIRUBIN,DIRECT 0.4 mg/dL (0.0-0.2)
[2019-10-21] MEDS: AZITHROMYCIN IVPB 500 MG/250 ML BAG IVPB SCH (09:20)
[2019-10-21] MEDS: amLODIPine BESYLATE 10 MG TABLET (FP) PO SCH (09:24)
[2019-10-21] MEDS: METOPROLOL TARTRATE 25 MG TABLET (FP) PO SCH ×2 (09:24→22:23)
[2019-10-21] MEDS: LOSARTAN POTASSIUM 50 MG TABLET (FP) PO SCH (09:24)
[2019-10-21] MEDS: LORazepam 1 MG TABLET PO PRN ×2 (09:24→22:24)
[2019-10-21 09:30] LABS: ALBUMIN 3.3 g/dl (3.4-5.0); BILIRUBIN,TOTAL 1.1 mg/dL (0.2-1); BLOOD UREA NITROGEN 4.4 mg/dL (7-18); CALCIUM 8.2 mg/dL (8.5-10.1); CREATININE 0.4 mg/dL (0.55-1.3); TOT PROT 7.8 g/dl (6.4-8.2)
[2019-10-21 09:48] LABS: POTASSIUM 2.8 mmol/L (3.5-5.1)
[2019-10-21] MEDS ORDERED: CEFTRIAXONE 1 GM in DEXTROSE 5%-WATER - 50 ML IVPB SCH (10:00)
[2019-10-21] MEDS ORDERED: FUROSEMIDE 20 MG TABLET (FP) PO SCH (10:00)
--- NOTE | 2019-10-21 10:19 | EKG ---
Test Reason : Blood Pressure : / mmHG Vent. Rate : 068 BPM Atrial Rate : 061 BPM P-R Int : 000 ms QRS Dur : 112 ms QT Int : 432 ms P-R-T Axes : 000 000 093 degrees QTc Int : 459 ms Ventricular-paced rhythm ABNORMAL ECG Confirmed by BRITTANY EMANUEL MD ([id number]) on 10/21/2019 10:19:12 AM Referred By: Confirmed By:BRITTANY EMANUEL MD
--- NOTE | 2019-10-21 10:20 | EKG ---
Test Reason : Blood Pressure : / mmHG Vent. Rate : 117 BPM Atrial Rate : 156 BPM P-R Int : 000 ms QRS Dur : 134 ms QT Int : 250 ms P-R-T Axes : 000 -85 256 degrees QTc Int : 348 ms POOR DATA QUALITY, INTERPRETATION MAY BE ADVERSELY AFFECTED UNDETERMINED RHYTHM LEFT AXIS DEVIATION NON-SPECIFIC INTRA-VENTRICULAR CONDUCTION BLOCK INFERIOR INFARCT , AGE UNDETERMINED T WAVE ABNORMALITY, CONSIDER ANTERIOR ISCHEMIA ABNORMAL ECG Confirmed by ADELFO BROTHERS, BRITTANY ([id number]) on 10/21/2019 10:19:47 AM Referred By: Confirmed By:BRITTANY EMANUEL MD
[2019-10-21] MEDS ORDERED: POTASSIUM CHLORIDE TABS 20 MEQ TABLET.ER (FP) PO ONE ×2 (12:44→23:17)
[2019-10-21] MEDS: KCL 10 MEQ IVPB 10 MEQ/100 ML INFUS.BAG IVPB SCH ×3 (13:17→16:42)
[2019-10-21] MEDS ORDERED: cefTRIAXone SODIUM 1 GM VIAL ONE (16:40)
[2019-10-21] MEDS ORDERED: DEXTROSE 5%-WATER - 50 ML IVPB ONE (16:40)
[2019-10-21] MEDS: CEFTRIAXONE 1 GM in DEXTROSE 5%-WATER - 50 ML IVPB SCH (16:42)
[2019-10-21] MEDS ORDERED: MAGNESIUM SULF 50% (8.12 MEQ/2 ML-1 GM VIAL) IVPB ONE (17:29)
[2019-10-21] MEDS ORDERED: WARFARIN NA 5 MG TABLET (UD) PO SCH (18:00)
--- NOTE | 2019-10-21 18:15 | PN ---
Progress Note (short form) - Note Progress Note: SUBJECTIVE: Complains of Cough, Fevers. No CP/hemoptysis. OBJECTIVE: Afebrile, Hemodynamically Stable. AAO x 2 (baseline mental status unclear) Last Vital Signs Temp Pulse Resp BP Pulse Ox 99.0 F 72 18 131/76 95 10/21/19 15:19 10/21/19 15:19 10/21/19 15:19 10/21/19 15:19 10/21/19 10:00 HEENT - Atramatic, Normocephalic. Heart - S1, S2, SM Lungs - R sided crackles. Abdomen - Soft non-tender. Bowel Sounds normal. Extremities - no edema, no calf tenderness. Laboratory Results - last 24 hr 10/20/19 10/20/19 10/20/19 07:15 09:08 17:55 WBC RBC Hgb Hct MCV MCH MCHC RDW Plt Count MPV Absolute Neuts (auto) Neutrophils % Lymphocytes % Monocytes % Eosinophils % Basophils % Nucleated RBC % PT with INR 16.50 H INR 1.39 H PTT (Actin FS) 32.8 Sodium Potassium Chloride Carbon Dioxide Anion Gap BUN Creatinine Est GFR (CKD-EPI)AfAm Est GFR (CKD-EPI)NonAf Random Glucose Lactic Acid 1.8 Calcium Iron TIBC Iron Saturation Unsaturated IBC Ferritin Total Bilirubin Direct Bilirubin AST ALT Alkaline Phosphatase Total Protein Albumin Vitamin B12 Serum Folate TSH Urine Color Urine Appearance Urine pH Ur Specific [place] Urine Protein Urine Glucose (UA) Urine Ketones Urine Blood Urine Nitrite Urine Bilirubin Urine Urobilinogen Ur Leukocyte Esterase Urine WBC (Auto) Urine RBC (Auto) Urine Casts (Auto) U Epithel Cells (Auto) Urine Bacteria (Auto) Urine Osmolality Ur Random Sodium HIV 1&2 Antibody Screen Negative HIV P24 Antigen Negative 10/20/19 10/20/19 10/21/19 18:20 20:15 06:00 WBC RBC Hgb Hct MCV MCH MCHC RDW Plt Count MPV Absolute Neuts (auto) Neutrophils % Lymphocytes % Monocytes % Eosinophils % Basophils % Nucleated RBC % PT with INR INR PTT (Actin FS) Sodium Potassium Chloride Carbon Dioxide Anion Gap BUN Creatinine Est GFR (CKD-EPI)AfAm Est GFR (CKD-EPI)NonAf Random Glucose Lactic Acid 5.0 H* Calcium Iron TIBC Iron Saturation Unsaturated IBC Ferritin 40.7 Total Bilirubin Direct Bilirubin 0.4 H AST ALT Alkaline Phosphatase Total Protein Albumin Vitamin B12 Serum Folate TSH Urine Color Yellow Urine Appearance Clear Urine pH 5.5 Ur Specific [place] 1.014 Urine Protein 2+ H Urine Glucose (UA) Negative Urine Ketones Negative Urine Blood Trace Urine Nitrite Negative Urine Bilirubin Negative Urine Urobilinogen 0.2 Ur Leukocyte Esterase Negative Urine WBC (Auto) 0 Urine RBC (Auto) 3 Urine Casts (Auto) 0 U Epithel Cells (Auto) 0.8 Urine Bacteria (Auto) 0.7 Urine Osmolality Ur Random Sodium HIV 1&2 Antibody Screen HIV P24 Antigen 10/21/19 10/21/19 10/21/19 07:15 07:15 07:15 WBC 5.0 RBC 3.86 Hgb 9.9 L Hct 30.9 L MCV 80.1 MCH 25.8 MCHC 32.2 RDW 19.7 H Plt Count 159 MPV 9.6 Absolute Neuts (auto) 3.4 Neutrophils % 66.9 Lymphocytes % 17.0 D Monocytes % 15.8 H Eosinophils % 0.0 D Basophils % 0.3 Nucleated RBC % 0 PT with INR 17.30 H INR 1.46 H PTT (Actin FS) Sodium 130 L Potassium 2.8 L* Chloride 92 L Carbon Dioxide 31 Anion Gap 7 L BUN 4.4 L Creatinine 0.4 L Est GFR (CKD-EPI)AfAm 116.44 Est GFR (CKD-EPI)NonAf 100.47 Random Glucose 89 Lactic Acid Calcium 8.2 L Iron 20 L TIBC 390 Iron Saturation 5 L Unsaturated IBC 370 H Ferritin Total Bilirubin 1.1 H Direct Bilirubin AST 46 H ALT 27 Alkaline Phosphatase 148 H Total Protein 7.8 Albumin 3.3 L Vitamin B12 659 Serum Folate 6 TSH 0.67 Urine Color Urine Appearance Urine pH Ur Specific [place] Urine Protein Urine Glucose (UA) Urine Ketones Urine Blood Urine Nitrite Urine Bilirubin Urine Urobilinogen Ur Leukocyte Esterase Urine WBC (Auto) Urine RBC (Auto) Urine Casts (Auto) U Epithel Cells (Auto) Urine Bacteria (Auto) Urine Osmolality Ur Random Sodium HIV 1&2 Antibody Screen HIV P24 Antigen 10/21/19 10/21/19 10/21/19 07:15 08:42 10:40 WBC RBC Hgb Hct MCV MCH MCHC RDW Plt Count MPV Absolute Neuts (auto) Neutrophils % Lymphocytes % Monocytes % Eosinophils % Basophils % Nucleated RBC % PT with INR INR PTT (Actin FS) 53.9 H Sodium Potassium Chloride Carbon Dioxide Anion Gap BUN Creatinine Est GFR (CKD-EPI)AfAm Est GFR (CKD-EPI)NonAf Random Glucose Lactic Acid 1.5 Calcium Iron TIBC Iron Saturation Unsaturated IBC Ferritin Total Bilirubin Direct Bilirubin AST ALT Alkaline Phosphatase Total Protein Albumin Vitamin B12 Serum Folate TSH Urine Color Urine Appearance Urine pH Ur Specific [place] Urine Protein Urine Glucose (UA) Urine Ketones Urine Blood Urine Nitrite Urine Bilirubin Urine Urobilinogen Ur Leukocyte Esterase Urine WBC (Auto) Urine RBC (Auto) Urine Casts (Auto) U Epithel Cells (Auto) Urine Bacteria (Auto) Urine Osmolality Ur Random Sodium 107 HIV 1&2 Antibody Screen HIV P24 Antigen 10/21/19 10:40 WBC RBC Hgb Hct MCV MCH MCHC RDW Plt Count MPV Absolute Neuts (auto) Neutrophils % Lymphocytes % Monocytes % Eosinophils % Basophils % Nucleated RBC % PT with INR INR PTT (Actin FS) Sodium Potassium Chloride Carbon Dioxide Anion Gap BUN Creatinine Est GFR (CKD-EPI)AfAm Est GFR (CKD-EPI)NonAf Random Glucose Lactic Acid Calcium Iron TIBC Iron Saturation Unsaturated IBC Ferritin Total Bilirubin Direct Bilirubin AST ALT Alkaline Phosphatase Total Protein Albumin Vitamin B12 Serum Folate TSH Urine Color Urine Appearance Urine pH Ur Specific [place] Urine Protein Urine Glucose (UA) Urine Ketones Urine Blood Urine Nitrite Urine Bilirubin Urine Urobilinogen Ur Leukocyte Esterase Urine WBC (Auto) Urine RBC (Auto) Urine Casts (Auto) U Epithel Cells (Auto) Urine Bacteria (Auto) Urine Osmolality 269 L Ur Random Sodium HIV 1&2 Antibody Screen HIV P24 Antigen Current Medications Generic Name Dose Route Start Last Admin Trade Name Freq PRN Reason Stop Dose Admin Albuterol/Ipratropium 1 amp 10/20/19 20:45 Duoneb - NEB Q4H PRN SHORTNESS OF BREATH Amlodipine Besylate 10 mg 10/21/19 10:00 10/21/19 09:24 Norvasc - PO 10 mg DAILY MARCELLO Administration Atorvastatin Calcium 10 mg 10/21/19 22:00 Lipitor - PO HS MARCELLO Heparin Sodium (Porcine) 1,000 unit 10/20/19 23:07 Heparin - IVPUSH PRN PRN Heparin Heparin Sodium (Porcine) 5,000 unit 10/20/19 23:07 Heparin - IVPUSH PRN PRN Heparin Hydralazine HCl 10 mg 10/21/19 06:00 10/21/19 13:13 Apresoline - PO 10 mg TID MARCELLO Administration Azithromycin 500 mg in 250 mls @ 250 mls/hr 10/21/19 10:00 10/21/19 09:20 Zithromax 500mg Ivpb (Pre-Docked) IVPB 250 mls/hr DAILY MARCELLO Administration Heparin Sodium (Porcine) 25, 500 mls @ 16 mls/hr 10/20/19 23:15 10/21/19 08: 48 000 unit/ Sodium Chloride IV 800 unit/hr TITR MARCELLO 16 mls/hr Administration Protocol 800 UNIT/HR Ceftriaxone Sodium 1 gm/ 50 mls @ 100 mls/hr 10/21/19 17:00 10/21/19 16:42 Dextrose IVPB 100 mls/hr DAILY MARCELLO Administration Protocol Sodium Chloride 1,000 mls @ 42 mls/hr 10/21/19 06:15 10/21/19 07:23 Normal Saline - IV 42 mls/hr ASDIR MARCELLO Administration Lorazepam 1 mg 10/21/19 01:23 10/21/19 09:24 Ativan - PO 1 mg BID PRN Administration ANXIETY Losartan Potassium 100 mg 10/21/19 10:00 10/21/19 09:24 Cozaar - PO 100 mg DAILY MARCELLO Administration Metoprolol Tartrate 25 mg 10/21/19 10:00 10/21/19 09:24 Lopressor - PO 25 mg BID MARCELLO Administration Warfarin Sodium 5 mg 10/21/19 18:00 Coumadin - PO DAILY@1800 [facility] Home Medications Medication Instructions Recorded Amlodipine Besylate [Norvasc -] 10 mg PO DAILY 10/20/19 Furosemide [Lasix] 20 mg PO DAILY 10/20/19 Losartan Potassium [Cozaar] 100 mg PO DAILY 10/20/19 Metoprolol Tartrate 25 mg PO BID 10/20/19 Potassium Chloride 20 meq PO BID 10/20/19 Simvastatin [Zocor] 20 mg PO HS 10/20/19 Warfarin Na [Coumadin] 5 mg PO ASDIR 10/20/19 Warfarin Sodium [Coumadin] 7.5 mg PO ASDIR 10/20/19 hydrALAZINE HCL [Apresoline -] 10 mg PO TID 10/20/19 LORazepam [Lorazepam] 1 mg PO BID PRN 10/21/19 ASSESSMENT/PLAN: 79 year old female with history of Atrial fibrillation, HTN, CVA with residual R sided weakness, HLD, s/p PPM, presents with several day history of generalized weakness, cough, sputum, dyspnea. CT Chest - approximately 3 x 2.3 cm opacity containing air bronchograms is seen within the superior segment of the right lower lobe. Additional mild patchy opacities seen within the basilar segments of the right lower lobe consistent with infiltrates 1. Sepsis and Acute Hypoxic Resp Failure secondary to CAP Supplemental O2, IV hydration, IV Ceftriaxone/Azithromycin Lactic Acidosis resolved. Urine Legionella Ag/Sputum Cx pending. Flu neg Blood Cx negative 3 month follow up imaging recommended to ensure resolution of infiltrate. 2. Atrial fibrillation, on AC with Coumadin. INR subtherapeutic. Coumadin 5mg today and INR in AM Bridge with Heparin drip for now. 3. Hypokalemia sec to aggressive IV hydration. Replace and Repeat K. If still low after repletion today, will transfer patient to tele. 4. Hx CVA with residual R sided weakness - on Coumadin and Statin Px. 5, Iron Deficiency Anemia, etiology unclear. No evidence of acute blood loss. Will request FOBT. 6. HTN - on higher side today. Resumed on home meds Norvasc, Hydralazine, Losartan. Will monitor. 7. Elevated Transaminases, etiology unclear. CT shows hepatic congestion and distension of hepatic veins and robbin-hepatic ascites. Abdo US and Hepatitis panel requested. 8. Small pericardial effusion on CT and bedside Echo by ED staff, awaiting official TTE 9. RUL Subpleural opacity, incidental finding on CT - for 3 month follow up. Will consult Pulm for further work-up ? Bronch vs TTBx. 10. Ascending Aortic Aneurysm 4cm, incidental finding. Cardiothoracic Sx referral after acute PNA is over. 11. L Renal non-obstructing Calculus, incidental finding - for outpatient Urology follow up. 12. Dilated Pul Artery (indicative of possible high pulmonary artery pressure). Echo and Pulm eval requested. DVT Px - on Heparin drip. Visit type - Emergency Visit Emergency Visit: Yes ED Registration Date: 10/20/19 Care time: The patient presented to the Emergency Department on the above date and was hospitalized for further evaluation of their emergent condition. - New Patient This patient is new to me today: Yes Date on this admission: 10/21/19 - Critical Care Critical Care patient: No - Discharge Referral Referred to [facility] No
--- NOTE | 2019-10-21 19:44 | CON.CARD ---
Consult Consult Specialty:: cardiology Reason for Consultation:: ?valvular vegetation - History of Present Illness Chief Complaint: Pt is weak and coughing; translation by granddaughter (who is a nurse). History of Present Illness: 79-year-old black female (diane Wilson) with history of atrial fibrillation on Coumadin, ? systolic CHF, hypertension, CVA with residual right lower and upper extremity weakness, recent pacemaker placement, anxiety, presenting with cough shortness of breath subjective fevers and chills since last night. Her granddaughter says pt is A&Ox3, both at home and now.. 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 Cardio/Vascular: Yes: AFIB Reproductive: Yes: Postmenopausal ...: No Heme/Onc: Yes: Anemia - Alcohol/Substance Use Hx Alcohol Use: No - Smoking History Smoking history: Never smoked Have you smoked in the past 12 months: No Home Medications - Allergies Allergies/Adverse Reactions: Allergies Allergy/AdvReac Type Severity Reaction Status Date / Time No Known Allergies Allergy Verified 10/20/19 15:30 - Home Medications Home Medications: Ambulatory Orders Amlodipine Besylate [Norvasc -] 10 mg PO DAILY 10/20/19 Furosemide [Lasix] 20 mg PO DAILY 10/20/19 Losartan Potassium [Cozaar] 100 mg PO DAILY 10/20/19 Metoprolol Tartrate 25 mg PO BID 10/20/19 Potassium Chloride 20 meq PO BID 10/20/19 Simvastatin [Zocor] 20 mg PO HS 10/20/19 Warfarin Na [Coumadin] 5 mg PO ASDIR 10/20/19 Warfarin Sodium [Coumadin] 7.5 mg PO ASDIR 10/20/19 hydrALAZINE HCL [Apresoline -] 10 mg PO TID 10/20/19 LORazepam [Lorazepam] 1 mg PO BID PRN 10/21/19 Family Medical History Family History: Denies Review of Systems - Review of Systems Constitutional: reports: Weakness Eyes: reports: No Symptoms HENT: reports: No Symptoms Neck: reports: No Symptoms Cardiovascular: reports: Shortness of Breath Respiratory: reports: SOB Gastrointestinal: reports: No Symptoms Genitourinary: reports: No Symptoms Breasts: reports: No Symptoms Reported Musculoskeletal: reports: Muscle Weakness Integumentary: reports: No Symptoms Neurological: reports: Weakness Endocrine: reports: No Symptoms Hematology/Lymphatic: reports: No Symptoms Psychiatric: reports: No Symptoms - Risk Factors Known Risk Factors: Yes: Age, Diabetes Mellitus, Hypertension Vital Signs: Vital Signs Temperature 99.0 F 10/21/19 15:19 Pulse Rate 72 10/21/19 15:19 Respiratory Rate 18 10/21/19 15:19 Blood Pressure 131/76 10/21/19 15:19 O2 Sat by Pulse Oximetry (%) 95 10/21/19 10:00 Constitutional: Yes: Thin Eyes: Yes: WNL HENT: Yes: WNL Neck: Yes: WNL Respiratory: Yes: Diminished Gastrointestinal: Yes: WNL Renal/: No: Anuria Cardiovascular: Yes: Pulse Irregular JVD: Yes Carotid Bruit: No Heart Sounds: Yes: S1 (varies in intensity), Split S2 Murmur: Yes: Systolic Murmur, Grade 2 Musculoskeletal: Yes: Muscle Weakness Extremities: Yes: Cool Edema: No Peripheral Pulses WNL: Yes - Other Data Labs, Other Data: CBC, BMP 10/21/19 07:15 10/21/19 07:15 INR, PTT INR 1.46 (0.83-1.09) H 10/21/19 07:15 Imaging - Results Chest X-ray: Image Reviewed EKG: Image Reviewed Problem List - Problems (1) Valvular vegetation Assessment/Plan: Reported hx of cardiac valvular vegetation on portable ECHO; will need complete study. WBC WNL; no fever today (101.9 F two days ago). +Anemia Code(s): I33.0 - ACUTE AND SUBACUTE INFECTIVE ENDOCARDITIS (2) Pneumonia Code(s): J18.9 - PNEUMONIA, UNSPECIFIED ORGANISM (3) Hypokalemia Assessment/Plan: Replete, and keep K 4.0-4.5 F/u Mg (receiving IV dose now; keep level 2.0-2.4) and PO4 levels (keep level 2.5-4.9). Code(s): E87.6 - HYPOKALEMIA (4) Anemia Code(s): D64.9 - ANEMIA, UNSPECIFIED (5) Acute CHF Assessment/Plan: likely systolic (marked cardiac enlargement on CXR and CT; small pericardial effusion); pt is on carvedilol, losartan, and furosemide at home. +JVD; bilateral rales; congestive changes on CXR. ? S/p PPM 2 months ago, per granddaughter (?not ICD). F/u BUN/Cr, electrolytes, daily wt, Is and Os. Code(s): I50.9 - HEART FAILURE, UNSPECIFIED (6) HTN (hypertension) Assessment/Plan: On losartan, amlodipine, metoprolol, hydralazine, Imdur. Code(s): I10 - ESSENTIAL (PRIMARY) HYPERTENSION
[2019-10-21] MEDS ORDERED: CEFTRIAXONE 2 GM-D5W BAG 2 GM/50 ML BAG IVPB SCH (20:00)
[2019-10-21 21:09] LABS: POTASSIUM 3.1 mmol/L (3.5-5.1)
[2019-10-21] MEDS ORDERED: ISOSORBIDE DINITRATE 5 MG TABLET PO SCH (22:00)
[2019-10-21] MEDS: ATORVASTATIN CA 10 MG TABLET (FP) PO SCH (22:23)
[2019-10-21] MEDS ORDERED: POTASSIUM CHLORIDE 10 MEQ in SODIUM CHLORIDE 1,000 ML IVPB SCH (23:30)
[2019-10-22] MEDS: hydrALAZINE HCL 10 MG TABLET PO SCH ×3 (06:01→21:45)
[2019-10-22 08:13] LABS: ACTIVATED PTT 91.8 SECONDS (25.2-36.5)
[2019-10-22 08:50] LABS: INR 1.13 (0.83-1.09); PROTHROMBIN TIME (PATIENT) 13.4 SEC (9.7-13.0)
[2019-10-22 09:20] LABS: ALBUMIN 2.8 g/dl (3.4-5.0); BILIRUBIN,TOTAL 0.7 mg/dL (0.2-1); BLOOD UREA NITROGEN 7.5 mg/dL (7-18); CALCIUM 7.9 mg/dL (8.5-10.1); CREATININE 0.4 mg/dL (0.55-1.3); MAGNESIUM 2.4 mg/dL (1.8-2.4); POTASSIUM 3.8 mmol/L (3.5-5.1); TOT PROT 6.6 g/dl (6.4-8.2)
[2019-10-22] MEDS ORDERED: cefTRIAXone SODIUM 1 GM VIAL ONE (09:29)
[2019-10-22] MEDS ORDERED: DEXTROSE 5%-WATER - 50 ML IVPB ONE (09:29)
[2019-10-22] MEDS: CEFTRIAXONE 1 GM in DEXTROSE 5%-WATER - 50 ML IVPB SCH (09:32)
[2019-10-22] MEDS: METOPROLOL TARTRATE 25 MG TABLET (FP) PO SCH ×2 (09:34→21:45)
[2019-10-22] MEDS: LOSARTAN POTASSIUM 50 MG TABLET (FP) PO SCH (09:34)
[2019-10-22] MEDS: amLODIPine BESYLATE 10 MG TABLET (FP) PO SCH (09:35)
[2019-10-22] MEDS ORDERED: FUROSEMIDE 40 MG/4 ML INJECTABLE VIAL IVPUSH ONE (10:00)
[2019-10-22] MEDS: AZITHROMYCIN IVPB 500 MG/250 ML BAG IVPB SCH (10:07)
[2019-10-22] MEDS ORDERED: PT OWN MED DRAWER 7, Y5N ONE (11:06)
[2019-10-22] MEDS: ENOXAPARIN NA (PORCINE) 40 MG/0.4 ML DISP.SYRIN SQ SCH ×2 (11:07→21:45)
[2019-10-22] MEDS: ISOSORBIDE DINITRATE 5 MG TABLET PO SCH ×2 (11:08→17:02)
--- NOTE | 2019-10-22 12:20 | PN ---
Teaching Attending Note Name of Resident: Flaco Cummins ATTENDING PHYSICIAN STATEMENT I saw and evaluated the patient. I reviewed the resident's note and discussed the case with the resident. I agree with the resident's findings and plan as documented. SUBJECTIVE: Some improvement in Cough and SOB. Fevers resolved. No CP/ hemoptysis. OBJECTIVE: Afebrile, Hemodynamically Stable. AAO x 2 (baseline mental status unclear) Last Vital Signs Temp Pulse Resp BP Pulse Ox 98.2 F 65 16 130/76 96 10/22/19 08:03 10/22/19 08:03 10/22/19 08:03 10/22/19 08:03 10/22/19 09:00 Heart - S1, S2, SM Lungs - bilateral crackles. Abdomen - Soft non-tender. Bowel Sounds normal. Extremities - no edema, no calf tenderness. Neuro - AAO x 2. Mild LLE weakness. Laboratory Results - last 24 hr 10/20/19 10/21/19 10/21/19 09:08 07:15 08:42 PT with INR INR PTT (Actin FS) Sodium Potassium Chloride Carbon Dioxide Anion Gap BUN Creatinine Est GFR (CKD-EPI)AfAm Est GFR (CKD-EPI)NonAf Random Glucose Lactic Acid 1.5 Calcium Magnesium Total Bilirubin AST ALT Alkaline Phosphatase Total Protein Albumin Triglycerides Cholesterol Total LDL Cholesterol HDL Cholesterol Urine Osmolality Hep A IgM Ab Confirm Negative Hep Bs Antigen Negative Hep B Core IgM Ab Negative Hepatitis C Ab (EIA) <0.1 HIV 1&2 Antibody Screen Negative HIV P24 Antigen Negative 10/21/19 10/21/19 10/22/19 10:40 19:56 07:05 PT with INR 13.40 H INR 1.13 H PTT (Actin FS) 91.8 H Sodium Potassium 3.1 L Chloride Carbon Dioxide Anion Gap BUN Creatinine Est GFR (CKD-EPI)AfAm Est GFR (CKD-EPI)NonAf Random Glucose Lactic Acid Calcium Magnesium Total Bilirubin AST ALT Alkaline Phosphatase Total Protein Albumin Triglycerides 49 Cholesterol 126 Total LDL Cholesterol 58 HDL Cholesterol 53 Urine Osmolality 269 L Hep A IgM Ab Confirm Hep Bs Antigen Hep B Core IgM Ab Hepatitis C Ab (EIA) HIV 1&2 Antibody Screen HIV P24 Antigen 10/22/19 07:05 PT with INR INR PTT (Actin FS) Sodium 135 L Potassium 3.8 Chloride 98 Carbon Dioxide 30 Anion Gap 7 L BUN 7.5 Creatinine 0.4 L Est GFR (CKD-EPI)AfAm 116.44 Est GFR (CKD-EPI)NonAf 100.47 Random Glucose 87 Lactic Acid Calcium 7.9 L Magnesium 2.4 Total Bilirubin 0.7 AST 44 H ALT 24 Alkaline Phosphatase 128 H Total Protein 6.6 Albumin 2.8 L Triglycerides Cholesterol Total LDL Cholesterol HDL Cholesterol Urine Osmolality Hep A IgM Ab Confirm Hep Bs Antigen Hep B Core IgM Ab Hepatitis C Ab (EIA) HIV 1&2 Antibody Screen HIV P24 Antigen Current Medications Generic Name Dose Route Start Last Admin Trade Name Freq PRN Reason Stop Dose Admin Albuterol/Ipratropium 1 amp 10/20/19 20:45 Duoneb - NEB Q4H PRN SHORTNESS OF BREATH Amlodipine Besylate 10 mg 10/21/19 10:00 10/22/19 09:35 Norvasc - PO 10 mg DAILY MARCELLO Administration Atorvastatin Calcium 10 mg 10/21/19 22:00 10/21/19 22:23 Lipitor - PO 10 mg HS MARCELLO Administration Enoxaparin Sodium 50 mg 10/22/19 11:00 10/22/19 11:07 Lovenox - SQ 50 mg BID MARCELLO Administration Hydralazine HCl 10 mg 10/21/19 06:00 10/22/19 06:01 Apresoline - PO 10 mg TID MARCELLO Administration Azithromycin 500 mg in 250 mls @ 250 mls/hr 10/21/19 10:00 10/22/19 10:07 Zithromax 500mg Ivpb (Pre-Docked) IVPB 250 mls/hr DAILY MARCELLO Administration Ceftriaxone Sodium 1 gm/ 50 mls @ 100 mls/hr 10/21/19 17:00 10/22/19 09:32 Dextrose IVPB 100 mls/hr DAILY MARCELLO Administration Protocol Isosorbide Dinitrate 5 mg 10/22/19 10:00 10/22/19 11:08 Isordil - PO 5 mg BIDISORDIL MARCELLO Administration Lorazepam 1 mg 10/21/19 01:23 10/21/19 22:24 Ativan - PO 1 mg BID PRN Administration ANXIETY Losartan Potassium 100 mg 10/21/19 10:00 10/22/19 09:34 Cozaar - PO 100 mg DAILY MARCELLO Administration Metoprolol Tartrate 25 mg 10/21/19 10:00 10/22/19 09:34 Lopressor - PO 25 mg BID MARCELLO Administration Warfarin Sodium 7.5 mg 10/22/19 18:00 Coumadin - PO 10/22/19 18:01 ONCE@1800 [facility] Home Medications Medication Instructions Recorded Amlodipine Besylate [Norvasc -] 10 mg PO DAILY 10/20/19 Furosemide [Lasix] 20 mg PO DAILY 10/20/19 Losartan Potassium [Cozaar] 100 mg PO DAILY 10/20/19 Metoprolol Tartrate 25 mg PO BID 10/20/19 Potassium Chloride 20 meq PO BID 10/20/19 Simvastatin [Zocor] 20 mg PO HS 10/20/19 Warfarin Na [Coumadin] 5 mg PO ASDIR 10/20/19 Warfarin Sodium [Coumadin] 7.5 mg PO ASDIR 10/20/19 hydrALAZINE HCL [Apresoline -] 10 mg PO TID 10/20/19 LORazepam [Lorazepam] 1 mg PO BID PRN 10/21/19 ASSESSMENT/PLAN: 79 year old female with history of Atrial fibrillation, HTN, CVA with residual L sided weakness, HLD, s/p PPM, presents with several day history of generalized weakness, cough, sputum, dyspnea. CT Chest - approximately 3 x 2.3 cm opacity containing air bronchograms is seen within the superior segment of the right lower lobe. Additional mild patchy opacities seen within the basilar segments of the right lower lobe consistent with infiltrates 1. Sepsis secondary to CAP Supplemental O2, IV Ceftriaxone/Azithromycin Lactic Acidosis resolved. Urine Legionella Ag negative. Sputum Cx pending. Flu neg Blood Cx negative 3 month follow up imaging recommended to ensure resolution of infiltrate. 2. Atrial fibrillation, on AC with Coumadin. INR subtherapeutic. Coumadin 7.5mg today and INR check in AM Bridge with Lovenox. Heparin drip discontinued. 3. Hypokalemia sec to aggressive IV hydration - repleted. 4. Fluid overload, likely sec to fluid resuscitation due to sepsis management. Fluids held. Lasix IVP 40mg now. Echo pending for LV function determination. 5. Hx CVA with residual L sided weakness - on Coumadin and Statin. 6. HTN - controlled on home meds Norvasc, Hydralazine, Losartan, Lopressor, Isordil. Will monitor. 7. Elevated Transaminases, etiology unclear. CT shows hepatic congestion and distension of hepatic veins and robbin-hepatic ascites. Abdo US - fatty liver, Hepatitis panel negative. 8. Small pericardial effusion on CT and bedside Echo by ED staff, awaiting official TTE 9. RUL Subpleural opacity, incidental finding on CT - for 3 month follow up. Will consult Pulm for further work-up ? Bronch vs TTBx. 10. Ascending Aortic Aneurysm 4cm, incidental finding. Cardiothoracic Sx referral after acute PNA is over. 11. L Renal non-obstructing Calculus, incidental finding on CT, R Upper Pole Cyst on US - for outpatient Urology follow up. 12. Dilated Pul Artery (indicative of possible high pulmonary artery pressure). Echo and Pulm eval requested. 13. Iron Deficiency Anemia, etiology unclear. No evidence of acute blood loss. FOBT requested. DVT Px - On coumadin with Lovenox SQ bridging
--- NOTE | 2019-10-22 12:36 | PN ---
Physical Exam: SUBJECTIVE: Patient seen and examined at the bedside. Patient noted that she did have a productive cough and had intermittent shortness of breath if she moved around. Denied cp, headaches, dizziness, lightheadedness, abd pain, n/v/c/ d, fever, chills. OBJECTIVE: Vital Signs Period Temp Pulse Resp BP Sys/Carr Pulse Ox Last 24 Hr 98 F-99.0 F 60-72 16-20 105-140/46-91 96-96 GENERAL: The patient is awake, alert, and fully oriented, in no acute distress. Pleasant HEAD: Normal with no signs of trauma. EYES: PERRL, extraocular movements intact, sclera anicteric, conjunctiva clear. ENT: Oropharynx clear without exudates, moist mucous membranes. NECK: Trachea midline, full range of motion, supple. LUNGS: Noted crackles at the bases, no wheezes, no accessory muscle use. HEART: Regular rate and rhythm, S1, S2 with systolic ejection murmur. ABDOMEN: Soft, nontender, nondistended, normoactive bowel sounds, no guarding, no rebound, no masses. EXTREMITIES: 2+ pulses, warm, well-perfused, no edema. NEUROLOGICAL: Cranial nerves II through XII grossly intact. 4/5 muscle strength on LLE. All other extremities 5/5 muscle strength. PSYCH: Normal mood, normal affect. SKIN: Warm, dry, normal turgor, no rashes or lesions noted. Laboratory Results - last 24 hr 10/20/19 10/21/19 10/21/19 09:08 07:15 08:42 PT with INR INR PTT (Actin FS) Sodium Potassium Chloride Carbon Dioxide Anion Gap BUN Creatinine Est GFR (CKD-EPI)AfAm Est GFR (CKD-EPI)NonAf Random Glucose Lactic Acid 1.5 Calcium Magnesium Total Bilirubin AST ALT Alkaline Phosphatase Total Protein Albumin Triglycerides Cholesterol Total LDL Cholesterol HDL Cholesterol Hep A IgM Ab Confirm Negative Hep Bs Antigen Negative Hep B Core IgM Ab Negative Hepatitis C Ab (EIA) <0.1 HIV 1&2 Antibody Screen Negative HIV P24 Antigen Negative 10/21/19 10/22/19 10/22/19 19:56 07:05 07:05 PT with INR 13.40 H INR 1.13 H PTT (Actin FS) 91.8 H Sodium 135 L Potassium 3.1 L 3.8 Chloride 98 Carbon Dioxide 30 Anion Gap 7 L BUN 7.5 Creatinine 0.4 L Est GFR (CKD-EPI)AfAm 116.44 Est GFR (CKD-EPI)NonAf 100.47 Random Glucose 87 Lactic Acid Calcium 7.9 L Magnesium 2.4 Total Bilirubin 0.7 AST 44 H ALT 24 Alkaline Phosphatase 128 H Total Protein 6.6 Albumin 2.8 L Triglycerides 49 Cholesterol 126 Total LDL Cholesterol 58 HDL Cholesterol 53 Hep A IgM Ab Confirm Hep Bs Antigen Hep B Core IgM Ab Hepatitis C Ab (EIA) HIV 1&2 Antibody Screen HIV P24 Antigen Active Medications Generic Name Dose Route Start Last Admin Trade Name Freq PRN Reason Stop Dose Admin Albuterol/Ipratropium 1 amp 10/20/19 20:45 Duoneb - NEB Q4H PRN SHORTNESS OF BREATH Amlodipine Besylate 10 mg 10/21/19 10:00 10/22/19 09:35 Norvasc - PO 10 mg DAILY MARCELLO Administration Atorvastatin Calcium 10 mg 10/21/19 22:00 10/21/19 22:23 Lipitor - PO 10 mg HS MARCELLO Administration Enoxaparin Sodium 50 mg 10/22/19 11:00 10/22/19 11:07 Lovenox - SQ 50 mg BID MARCELLO Administration Hydralazine HCl 10 mg 10/21/19 06:00 10/22/19 06:01 Apresoline - PO 10 mg TID MARCELLO Administration Azithromycin 500 mg in 250 mls @ 250 mls/hr 10/21/19 10:00 10/22/19 10:07 Zithromax 500mg Ivpb (Pre-Docked) IVPB 250 mls/hr DAILY MARCELLO Administration Ceftriaxone Sodium 1 gm/ 50 mls @ 100 mls/hr 10/21/19 17:00 10/22/19 09:32 Dextrose IVPB 100 mls/hr DAILY MARCELLO Administration Protocol Isosorbide Dinitrate 5 mg 10/22/19 10:00 10/22/19 11:08 Isordil - PO 5 mg BIDISORDIL MARCELLO Administration Lorazepam 1 mg 10/21/19 01:23 10/21/19 22:24 Ativan - PO 1 mg BID PRN Administration ANXIETY Losartan Potassium 100 mg 10/21/19 10:00 10/22/19 09:34 Cozaar - PO 100 mg DAILY MARCELLO Administration Metoprolol Tartrate 25 mg 10/21/19 10:00 10/22/19 09:34 Lopressor - PO 25 mg BID MARCELLO Administration Warfarin Sodium 7.5 mg 10/22/19 18:00 Coumadin - PO 10/22/19 18:01 ONCE@1800 ONE ASSESSMENT/PLAN: Cheryl Valderrama is a 79 female with a past medical history of Afib(on Coumadin) , HTN, 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 Community-acquired pneumonia with hypoxic respiratory failure - Fever of 101.9F, CURB-65 1 - Lactic initially 4.8, trended up to 5.0, currently resolved - hypoxic on RA, requiring 2L NC, continue and wean as tolerated - Blood culture negative - Sputum culture - [place] antigen, strep antigens negative - continue Ceftriaxone 2 gram IV Q24 hours. - continue Azithromycin 500 mg IV Daily Acute Respiratory Distress - likely in setting of PNA vs CHF - Patient on 2L NC and saturating at 98% - wean as tolerated - monitor I+Os, daily weights - POC U/S and CT chest noting pericardial effusion and cardiomegaly, will need cardiology outpatient f/u - echo - given Lasix 40mg IV once today in setting of increasing fluid status ? cardiac valvular vegetations - unable to rule out as per ED POC U/S - Transthoracic echo - Cardiology consulted, recs appreciated AFib on warfarin with subtherapeutic INR - Lovenox 50mg bid for bridging to avoid excessive fluid administration - warfarin 7.5mg until therapeutic - Repeat INR/PT and discontinue Lovenox when INR therapeutic - will need cardiology and PCP f/u for adequate warfarin dosing Normocytic anemia - Follow CBC - iron studies showing low iron, low iron saturation - B12 and folate within normal levels - TSH within normal limits - FOBT negative Transaminits - HIV serology negative - Hep B and Hep C panel negative - RUQ sonogram noting fatty liver vs hepatocellular disease, CT noting distension of hepatic veins and perihepatic ascites, will need GI outpatient f/u Hyponatremia - Na of 130 on admission, improved to 135 today - low urine osm, high urine sodium likely in setting of home diuretics - serum osm not obtained and now of little utility in setting of rehydration and improvement of sodium Air Bronchograms and RUL subpleural opacity - ? 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 - 4cm as noted on CT chest - will need outpatient cardiothoracic surgery f/u Nonobstructing left renal calculus - 3mm as noted on CT - will need outpatient urology f/u HTN - on home Isosordil, Lopressor, Norvasc, hydralazine HLD - on home Lipitor DVT Prophylaxis - Lovenox and warfarin bridging FEN - no standing fluids to avoid overload in uncertain heart function and hx of CHF - continue to monitor electrolytes and replete as necessary - sodium/chol restricted diet Dispo - continue to monitor on Med-surg Visit type - Emergency Visit Emergency Visit: Yes ED Registration Date: 10/20/19 Care time: The patient presented to the Emergency Department on the above date and was hospitalized for further evaluation of their emergent condition. - New Patient This patient is new to me today: Yes Date on this admission: 10/22/19 - Critical Care Critical Care patient: No
--- NOTE | 2019-10-22 15:05 | PN ---
Progress Note (short form) - Note Progress Note: PULMONARY CONSULTATION DICTATED 10/22/19 IMP RLL INFILTRATE/CONSOLIDATION LIKELY PNEUMONIA RUL OPACITY CHF AFIB S/P PPM ASHD HTN HLD H/O CVA WITH LEFT SIDED WEAKNESS ANEMIA ELECTROLYE IMBALANCE ELEVATED LACTATE IMPROVED ABNORMAL LFTS PLAN ABX CULTURES SUPPLEMENTAL O2 INHALED BRONCHODILATORS MONITOR LYTES F/U CHEST X-RAYS F/U CHEST CT 4-6 WKS TO COFIRM RESOLUTION OF INFILTRATES [facility] URINARY ANTIGENS ECHO DIURETIC PER CARDIOLOGY DR STREET Problem List - Problems (1) H/O: CVA (cerebrovascular accident) Code(s): Z86.73 - PRSNL HX OF TIA (TIA), AND CEREB INFRC W/O RESID DEFICITS (2) Anemia Code(s): D64.9 - ANEMIA, UNSPECIFIED (3) Hypokalemia Code(s): E87.6 - HYPOKALEMIA (4) Pneumonia Code(s): J18.9 - PNEUMONIA, UNSPECIFIED ORGANISM (5) ASHD (arteriosclerotic heart disease) Code(s): I25.10 - ATHSCL HEART DISEASE OF [place] CORONARY ARTERY W/O ANG PCTRS (6) Afib Code(s): I48.91 - UNSPECIFIED ATRIAL FIBRILLATION (7) S/P placement of cardiac pacemaker Code(s): Z95.0 - PRESENCE OF CARDIAC PACEMAKER
[2019-10-22] MEDS ORDERED: WARFARIN NA 7.5 MG TABLET (FP) PO ONE (18:00)
[2019-10-22] MEDS: ATORVASTATIN CA 10 MG TABLET (FP) PO SCH (21:45)
--- NOTE | 2019-10-23 06:54 | PN ---
Progress Note, Physician Chief Complaint: Pt alert; denies chest pain, dyspnea, palpitations. History of Present Illness: 79-year-old black female (diane Wilson) with history of atrial fibrillation on Coumadin, ? systolic CHF, hypertension, CVA with residual right lower and upper extremity weakness, recent pacemaker placement, anxiety, presenting with cough shortness of breath subjective fevers and chills since last night. Her granddaughter says pt is A&Ox3, both at home and now.. - Current Medication List Current Medications: Active Medications Albuterol/Ipratropium (Duoneb -) 1 amp NEB Q4H PRN PRN Reason: SHORTNESS OF BREATH Amlodipine Besylate (Norvasc -) 10 mg PO DAILY [facility] Last Admin: 10/22/19 09:35 Dose: 10 mg Atorvastatin Calcium (Lipitor -) 10 mg PO HS [facility] Last Admin: 10/22/19 21:45 Dose: 10 mg Enoxaparin Sodium (Lovenox -) 50 mg SQ BID [facility] Last Admin: 10/22/19 21:45 Dose: 50 mg Hydralazine HCl (Apresoline -) 10 mg PO TID [facility] Last Admin: 10/22/19 21:45 Dose: 10 mg Azithromycin (Zithromax 500mg Ivpb (Pre-Docked)) 500 mg in 250 mls @ 250 mls/ hr IVPB DAILY [facility] Last Admin: 10/22/19 10:07 Dose: 250 mls/hr Ceftriaxone Sodium 1 gm/ (Dextrose) 50 mls @ 100 mls/hr IVPB DAILY [facility]; Protocol Last Admin: 10/22/19 09:32 Dose: 100 mls/hr Isosorbide Dinitrate (Isordil -) 5 mg PO BIDISORDIL [facility] Last Admin: 10/22/19 17:02 Dose: 5 mg Lorazepam (Ativan -) 1 mg PO BID PRN PRN Reason: ANXIETY Last Admin: 10/21/19 22:24 Dose: 1 mg Losartan Potassium (Cozaar -) 100 mg PO DAILY [facility] Last Admin: 10/22/19 09:34 Dose: 100 mg Metoprolol Tartrate (Lopressor -) 25 mg PO BID [facility] Last Admin: 10/22/19 21:45 Dose: 25 mg - Objective Vital Signs: Vital Signs Temperature 98.1 F 12/15/19 21:11 Pulse Rate 63 10/22/19 21:11 Respiratory Rate 18 10/22/19 21:00 Blood Pressure 138/79 10/22/19 21:11 O2 Sat by Pulse Oximetry (%) 96 10/22/19 21:00 Constitutional: Yes: No Distress Eyes: Yes: WNL HENT: Yes: WNL Neck: Yes: WNL Cardiovascular: Yes: S1, S2 (split) Respiratory: Yes: Diminished, Rhonchi Labs: CBC, BMP 10/21/19 07:15 10/22/19 07:05 INR, PTT INR 1.13 (0.83-1.09) H 10/22/19 07:05 Problem List - Problems (1) Valvular vegetation Assessment/Plan: Reported hx of cardiac valvular vegetation on portable ECHO; will need complete study on Wednesday. WBC WNL; no fever (on no antibiotics) reported since early am 10/21/19. +Anemia Code(s): I33.0 - ACUTE AND SUBACUTE INFECTIVE ENDOCARDITIS (2) Pneumonia Code(s): J18.9 - PNEUMONIA, UNSPECIFIED ORGANISM (3) Hypokalemia Assessment/Plan: Repleted, and keep K 4.0-4.5 Mg2+ WNL. Code(s): E87.6 - HYPOKALEMIA (4) Anemia Code(s): D64.9 - ANEMIA, UNSPECIFIED (5) Acute CHF Assessment/Plan: likely systolic (marked cardiac enlargement on CXR and CT; small pericardial effusion); pt is on carvedilol, losartan, and furosemide at home. +JVD; bilateral rales; congestive changes on CXR. S/p PPM ?2 months ago, per granddaughter (?not ICD); f/u records. F/u BUN/Cr, electrolytes, daily wt, Is and Os. Code(s): I50.9 - HEART FAILURE, UNSPECIFIED (6) HTN (hypertension) Assessment/Plan: On losartan, amlodipine, metoprolol, hydralazine, Imdur. Code(s): I10 - ESSENTIAL (PRIMARY) HYPERTENSION
[2019-10-23] MEDS: hydrALAZINE HCL 10 MG TABLET PO SCH ×3 (07:01→21:46)
[2019-10-23 08:12] LABS: BILIRUBIN,TOTAL 0.6 mg/dL (0.2-1); BLOOD UREA NITROGEN 9.3 mg/dL (7-18); CALCIUM 8.4 mg/dL (8.5-10.1); CREATININE 0.4 mg/dL (0.55-1.3); MAGNESIUM 2.1 mg/dL (1.8-2.4); POTASSIUM 3.3 mmol/L (3.5-5.1); TOT PROT 6.8 g/dl (6.4-8.2)
[2019-10-23 08:28] LABS: HEMATOCRIT 29.7 % (32.4-45.2); HEMOGLOBIN 9.7 GM/dL (10.7-15.3); MCH 25.7 pg (25.7-33.7); MCHC 32.5 g/dl (32.0-36.0); MEAN CELL VOLUME 79.3 fl (80-96); MEAN PLT VOLUME 8.1 fl (7.5-11.1); PLATELET COUNT 170 K/MM3 (134-434); RBC 3.75 M/mm3 (3.60-5.2); RDW 19.7 % (11.6-15.6); WHITE BLOOD COUNT 3.8 K/mm3 (4.0-10.0)
[2019-10-23 09:05] LABS: INR 1.22 (0.83-1.09); PROTHROMBIN TIME (PATIENT) 14.4 SEC (9.7-13.0)
[2019-10-23 09:08] LABS: ACTIVATED PTT 39.8 SECONDS (25.2-36.5)
[2019-10-23] MEDS ORDERED: cefTRIAXone SODIUM 1 GM VIAL ONE (09:42)
[2019-10-23] MEDS ORDERED: DEXTROSE 5%-WATER - 50 ML IVPB ONE (09:42)
[2019-10-23] MEDS: CEFTRIAXONE 1 GM in DEXTROSE 5%-WATER - 50 ML IVPB SCH (09:45)
[2019-10-23] MEDS: METOPROLOL TARTRATE 25 MG TABLET (FP) PO SCH ×2 (09:46→21:46)
[2019-10-23] MEDS: LORazepam 1 MG TABLET PO PRN (09:46)
[2019-10-23] MEDS: amLODIPine BESYLATE 10 MG TABLET (FP) PO SCH (09:46)
[2019-10-23] MEDS: LOSARTAN POTASSIUM 50 MG TABLET (FP) PO SCH (09:47)
[2019-10-23] MEDS: ENOXAPARIN NA (PORCINE) 40 MG/0.4 ML DISP.SYRIN SQ SCH (09:50)
[2019-10-23] MEDS: ISOSORBIDE DINITRATE 5 MG TABLET PO SCH ×2 (10:07→18:09)
[2019-10-23] MEDS: AZITHROMYCIN IVPB 500 MG/250 ML BAG IVPB SCH (10:59)
[2019-10-23] MEDS ORDERED: POTASSIUM CHLORIDE TABS 20 MEQ TABLET.ER (FP) PO ONE (11:56)
--- NOTE | 2019-10-23 12:14 | PN ---
Progress Note (short form) - Note Progress Note: PULMONARY No fevers recorded. Denies shortness of breath. Vital Signs Period Temp Pulse Resp BP Sys/Carr Pulse Ox Last 24 Hr 97.8 F-98.1 F 60-69 18-18 106-138/47-79 96 Gen: NAD at rest Heart: RRR Lung: decreased breath sounds at the bases Abd: soft, nontender Ext: no edema CBC, BMP 10/23/19 07:10 10/23/19 07:10 Active Medications Albuterol/Ipratropium (Duoneb -) 1 amp NEB Q4H PRN PRN Reason: SHORTNESS OF BREATH Amlodipine Besylate (Norvasc -) 10 mg PO DAILY [facility] Last Admin: 10/23/19 09:46 Dose: 10 mg Atorvastatin Calcium (Lipitor -) 10 mg PO HS [facility] Last Admin: 10/22/19 21:45 Dose: 10 mg Enoxaparin Sodium (Lovenox -) 50 mg SQ BID [facility] Ferrous Sulfate (Feosol -) 325 mg PO DAILY [facility] Hydralazine HCl (Apresoline -) 10 mg PO TID [facility] Last Admin: 10/23/19 07:01 Dose: 10 mg Azithromycin (Zithromax 500mg Ivpb (Pre-Docked)) 500 mg in 250 mls @ 250 mls/ hr IVPB DAILY [facility] Last Admin: 10/23/19 10:59 Dose: 250 mls/hr Ceftriaxone Sodium 1 gm/ (Dextrose) 50 mls @ 100 mls/hr IVPB DAILY [facility]; Protocol Last Admin: 10/23/19 09:45 Dose: 100 mls/hr Isosorbide Dinitrate (Isordil -) 5 mg PO BIDISORDIL [facility] Last Admin: 10/23/19 10:07 Dose: 5 mg Lorazepam (Ativan -) 1 mg PO BID PRN PRN Reason: ANXIETY Last Admin: 10/23/19 09:46 Dose: 1 mg Losartan Potassium (Cozaar -) 100 mg PO DAILY [facility] Last Admin: 10/23/19 09:47 Dose: 100 mg Metoprolol Tartrate (Lopressor -) 25 mg PO BID [facility] Last Admin: 10/23/19 09:46 Dose: 25 mg Warfarin Sodium (Coumadin -) 7.5 mg PO ONCE@1800 ONE Stop: 12/16/19 18:01 A/P Pneumonia Sepsis Lactic Acidosis LV Systolic Dysfunction Atrial Fibrillation CAD HTN Hyperlipidemia Hyponatremia Anemia - continue antibiotics - inhaled bronchodilators - O2 to keep SpO2 >90% - aspiration precautions - rate control - continue anticoagulation - echocardiogram - outpt f/u of chest imaging to ensure resolution of infiltrates
--- NOTE | 2019-10-23 13:17 | PN ---
Progress Note, Physician Chief Complaint: Events noted Not in distress History of Present Illness: Patient was seen and examined. Awake and alert. Chart was reviewed Denies chest pain, SOB or palpitations . - Current Medication List Current Medications: Active Medications Albuterol/Ipratropium (Duoneb -) 1 amp NEB Q4H PRN PRN Reason: SHORTNESS OF BREATH Amlodipine Besylate (Norvasc -) 10 mg PO DAILY [facility] Last Admin: 10/23/19 09:46 Dose: 10 mg Atorvastatin Calcium (Lipitor -) 10 mg PO HS [facility] Last Admin: 10/22/19 21:45 Dose: 10 mg Enoxaparin Sodium (Lovenox -) 50 mg SQ BID [facility] Ferrous Sulfate (Feosol -) 325 mg PO DAILY [facility] Hydralazine HCl (Apresoline -) 10 mg PO TID [facility] Last Admin: 10/23/19 07:01 Dose: 10 mg Azithromycin (Zithromax 500mg Ivpb (Pre-Docked)) 500 mg in 250 mls @ 250 mls/ hr IVPB DAILY [facility] Last Admin: 10/23/19 10:59 Dose: 250 mls/hr Ceftriaxone Sodium 1 gm/ (Dextrose) 50 mls @ 100 mls/hr IVPB DAILY [facility]; Protocol Last Admin: 10/23/19 09:45 Dose: 100 mls/hr Isosorbide Dinitrate (Isordil -) 5 mg PO BIDISORDIL [facility] Last Admin: 10/23/19 10:07 Dose: 5 mg Lorazepam (Ativan -) 1 mg PO BID PRN PRN Reason: ANXIETY Last Admin: 10/23/19 09:46 Dose: 1 mg Losartan Potassium (Cozaar -) 100 mg PO DAILY [facility] Last Admin: 10/23/19 09:47 Dose: 100 mg Metoprolol Tartrate (Lopressor -) 25 mg PO BID [facility] Last Admin: 10/23/19 09:46 Dose: 25 mg Warfarin Sodium (Coumadin -) 7.5 mg PO ONCE@1800 ONE Stop: 10/23/19 18:01 - Objective Vital Signs: Vital Signs Temperature 97.8 F 10/23/19 07:28 Pulse Rate 69 10/23/19 07:28 Respiratory Rate 18 10/22/19 21:00 Blood Pressure 128/47 L 10/23/19 07:28 O2 Sat by Pulse Oximetry (%) 96 10/22/19 21:00 Neck: Yes: Supple Cardiovascular: Yes: Pulse Irregular, Murmur (SM), S1, S2 Respiratory: Yes: Diminished Gastrointestinal: Yes: Normal Bowel Sounds, Soft. No: Tenderness Edema: No Additional Findings/Remarks: - Review of Systems Constitutional: denies: Chills, Fever Cardiovascular: denies Chest Pain, Shortness of Breath. denies: Palpitations Respiratory: denies SOB, SOB on Exertion. denies: Cough, Hemoptysis, Orthopnea , PND Gastrointestinal: denies: Abdominal Pain, Constipation, Diarrhea, Melena, Nausea , Rectal Bleeding, Vomiting Genitourinary: denies Dysuria. denies: Hematuria Neurological: denies: Dizziness, Headache, Seizure, Syncope Labs: CBC, BMP 10/23/19 07:10 10/23/19 07:10 INR, PTT INR 1.22 (0.83-1.09) H 10/23/19 07:10 Problem List - Problems (1) ASHD (arteriosclerotic heart disease) Code(s): I25.10 - ATHSCL HEART DISEASE OF [place] CORONARY ARTERY W/O ANG PCTRS (2) Afib Code(s): I48.91 - UNSPECIFIED ATRIAL FIBRILLATION (3) Anemia Code(s): D64.9 - ANEMIA, UNSPECIFIED (4) H/O: CVA (cerebrovascular accident) Code(s): Z86.73 - PRSNL HX OF TIA (TIA), AND CEREB INFRC W/O RESID DEFICITS (5) HTN (hypertension) Code(s): I10 - ESSENTIAL (PRIMARY) HYPERTENSION (6) S/P placement of cardiac pacemaker Code(s): Z95.0 - PRESENCE OF CARDIAC PACEMAKER (7) Pneumonia Code(s): J18.9 - PNEUMONIA, UNSPECIFIED ORGANISM Assessment/Plan 1. Clinical presentation suggested sepsis with pneumonia, low suspicion for endocarditis but needs to be ruled out 2. Acute on chronic LV failure ? diastolic 3. HTN 4. Anemia 5. Sick sinus syndrome s/p PPM 6. Atrial fibrillation PLAN: 1. Echocardiography to assess LV/RV and valvular function and to rule out vegetation 2. Continue current cardiac therapy including Metoprolol 25 mg BID, Losartan 100 mg QD, Amlodipine 10 mg QD, Hydralazine 10 mg TID and Isordil 5 mg BID 3. Continue Furosemide 20 mg QD and monitor renal function and electrolytes 4. Continue Atorvastatin 10 mg QHS 5. Anticoagulation with Warfarin and maintain INR 2-3 (still remains subtherapeutic) 6. PPM interrogation as per protocol Further plans are to follow Prashanth Keyes MD
--- NOTE | 2019-10-23 14:35 | PN ---
Physical Exam: SUBJECTIVE: Patient seen and examined at the bedside. Patient stated she is feelings better but continues to have a productive cough and mild shortness of breath. Endorses good appetite. Denies cp, abd pain, n/v/c/d, fever, chills, lightheadedness, dizziness. OBJECTIVE: Vital Signs Period Temp Pulse Resp BP Sys/Carr Pulse Ox Last 24 Hr 97.8 F-98.1 F 63-69 18-18 128-140/47-83 96-96 GENERAL: The patient is awake, alert, and fully oriented, in no acute distress. Pleasant HEAD: Normal with no signs of trauma. EYES: PERRL, extraocular movements intact, sclera anicteric, conjunctiva clear. ENT: Oropharynx clear without exudates, moist mucous membranes. NECK: Trachea midline, full range of motion, supple. LUNGS: Noted crackles at the bases, no wheezes, no accessory muscle use. HEART: Regular rate and rhythm, S1, S2 with systolic ejection murmur. ABDOMEN: Soft, nontender, nondistended, normoactive bowel sounds, no guarding, no rebound, no masses. EXTREMITIES: 2+ pulses, warm, well-perfused, no edema. NEUROLOGICAL: Cranial nerves II through XII grossly intact. 4/5 muscle strength on LLE. All other extremities 5/5 muscle strength. PSYCH: Normal mood, normal affect. SKIN: Warm, dry, normal turgor, no rashes or lesions noted. Laboratory Results - last 24 hr 10/22/19 10/23/19 10/23/19 13:10 07:10 07:10 WBC 3.8 L RBC 3.75 Hgb 9.7 L Hct 29.7 L MCV 79.3 L MCH 25.7 MCHC 32.5 RDW 19.7 H Plt Count 170 MPV 8.1 D PT with INR 14.40 H INR 1.22 H PTT (Actin FS) 39.8 H Sodium Potassium Chloride Carbon Dioxide Anion Gap BUN Creatinine Est GFR (CKD-EPI)AfAm Est GFR (CKD-EPI)NonAf Random Glucose Calcium Magnesium Total Bilirubin AST ALT Alkaline Phosphatase Total Protein Albumin Stool Occult Blood Negative 10/23/19 07:10 WBC RBC Hgb Hct MCV MCH MCHC RDW Plt Count MPV PT with INR INR PTT (Actin FS) Sodium 132 L Potassium 3.3 L Chloride 95 L Carbon Dioxide 32 Anion Gap 6 L BUN 9.3 Creatinine 0.4 L Est GFR (CKD-EPI)AfAm 116.44 Est GFR (CKD-EPI)NonAf 100.47 Random Glucose 87 Calcium 8.4 L Magnesium 2.1 Total Bilirubin 0.6 AST 42 H ALT 25 Alkaline Phosphatase 139 H Total Protein 6.8 Albumin 3.0 L Stool Occult Blood Active Medications Generic Name Dose Route Start Last Admin Trade Name Freq PRN Reason Stop Dose Admin Albuterol/Ipratropium 1 amp 10/20/19 20:45 Duoneb - NEB Q4H PRN SHORTNESS OF BREATH Amlodipine Besylate 10 mg 10/21/19 10:00 10/23/19 09:46 Norvasc - PO 10 mg DAILY MARCELLO Administration Atorvastatin Calcium 10 mg 10/21/19 22:00 10/22/19 21:45 Lipitor - PO 10 mg HS MARCELLO Administration Enoxaparin Sodium 50 mg 10/23/19 12:00 Lovenox - SQ BID MARCELLO Ferrous Sulfate 325 mg 10/24/19 10:00 Feosol - PO DAILY MARCELLO Furosemide 20 mg 10/24/19 10:00 Lasix - PO DAILY MARCELLO Hydralazine HCl 10 mg 10/21/19 06:00 10/23/19 07:01 Apresoline - PO 10 mg TID MARCELLO Administration Azithromycin 500 mg in 250 mls @ 250 mls/hr 10/21/19 10:00 10/23/19 10:59 Zithromax 500mg Ivpb (Pre-Docked) IVPB 250 mls/hr DAILY MARCELLO Administration Ceftriaxone Sodium 1 gm/ 50 mls @ 100 mls/hr 10/21/19 17:00 10/23/19 09:45 Dextrose IVPB 100 mls/hr DAILY MARCELLO Administration Protocol Isosorbide Dinitrate 5 mg 10/22/19 10:00 10/23/19 10:07 Isordil - PO 5 mg BIDISORDIL MARCELLO Administration Lorazepam 1 mg 10/21/19 01:23 10/23/19 09:46 Ativan - PO 1 mg BID PRN Administration ANXIETY Losartan Potassium 100 mg 10/21/19 10:00 10/23/19 09:47 Cozaar - PO 100 mg DAILY MARCELLO Administration Metoprolol Tartrate 25 mg 10/21/19 10:00 10/23/19 09:46 Lopressor - PO 25 mg BID MARCELLO Administration Warfarin Sodium 7.5 mg 10/23/19 18:00 Coumadin - PO 10/23/19 18:01 ONCE@1800 ONE ASSESSMENT/PLAN: Cheryl Valderrama is a 79 female with a past medical history of Afib(on Coumadin) , HTN, 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 Community-acquired pneumonia with hypoxic respiratory failure - Fever of 101.9F, CURB-65 1 - Lactic initially 4.8, trended up to 5.0, currently resolved - weaned off O2 today, on RA - Blood culture negative - Sputum culture - Legionalla antigen, strep antigens negative - continue Ceftriaxone 2 gram IV Q24 hours. - continue Azithromycin 500 mg IV Daily Acute Respiratory Distress - likely in setting of PNA vs CHF - currently on RA - monitor I+Os, daily weights - POC U/S and CT chest noting pericardial effusion and cardiomegaly, will need cardiology outpatient f/u - echo - resumed home Lasix for tomorrow ? cardiac valvular vegetations - unable to rule out as per ED POC U/S - Transthoracic echo - Cardiology consulted, recs appreciated AFib on warfarin with subtherapeutic INR - Lovenox 50mg bid for bridging to avoid excessive fluid administration - warfarin 7.5mg until therapeutic - Repeat INR/PT and discontinue Lovenox when INR therapeutic - will need cardiology and PCP f/u for adequate warfarin dosing Normocytic anemia - Follow CBC - iron studies showing low iron, low iron saturation - B12 and folate within normal levels - TSH within normal limits - FOBT negative - started ferrous sulfate supplementation Transaminits - HIV serology negative - Hep B and Hep C panel negative - RUQ sonogram noting fatty liver vs hepatocellular disease, CT noting distension of hepatic veins and perihepatic ascites, will need GI outpatient f/u Hyponatremia - Na of 130 on admission, today 132, continue to monitor - low urine osm, high urine sodium likely in setting of home diuretics - serum osm not obtained and now of little utility in setting of rehydration and improvement of sodium Air Bronchograms and RUL subpleural opacity - ? 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 - 4cm as noted on CT chest - will need outpatient cardiothoracic surgery f/u Nonobstructing left renal calculus - 3mm as noted on CT - will need outpatient urology f/u HTN - on home Isosordil, Lopressor, Norvasc, hydralazine HLD - on home Lipitor DVT Prophylaxis - Lovenox and warfarin bridging FEN - no standing fluids to avoid overload in uncertain heart function and hx of CHF - continue to monitor electrolytes and replete as necessary - sodium/chol restricted diet Dispo - continue to monitor on Med-surg Visit type - Emergency Visit Emergency Visit: Yes ED Registration Date: 10/20/19 Care time: The patient presented to the Emergency Department on the above date and was hospitalized for further evaluation of their emergent condition. - New Patient This patient is new to me today: No - Critical Care Critical Care patient: No
--- NOTE | 2019-10-23 15:35 | CONS ---
PULMONARY CONSULTATION DATE OF CONSULTATION: 10/22/2019 REFERRING PHYSICIAN: Rene Hale MD HISTORY: History is obtained through banking consultant, patient's daughter. 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 Admitted to [facility] with a complaint of a 2-day history of fevers, chest congestion, and cough. Patient's that a couple of days prior to admission she started developing cough as well as chest congestion. She had subjective fevers but did not actually take a temperature. She denied any hemoptysis. She also complains of nausea and vomiting over the day prior to admission. Prior was admitted with the above. On admission, she underwent a chest CT, which reveals of a right lower lobe infiltrate, a right superior segment consolidation as well as a small pericardial effusion, mild cardiomegaly. She was admitted. She was started on broad- spectrum antibiotics. PAST MEDICAL HISTORY: Again includes history of CVA with residual left-sided weakness, hypertension, hyperlipidemia, congestive heart failure, atrial fibrillation status post permanent pacemaker. SOCIAL HISTORY: Born in [facility]. Moved to the [place] greater than 25 years ago. No occupational exposures. Nonsmoker. CURRENT MEDICATIONS: Include Cozaar, Zithromax, ceftriaxone, Lovenox, Coumadin, Ativan, DuoNeb, Lopressor, Norvasc, Apresoline, Lipitor, and Isordil. PHYSICAL EXAMINATION: General: Patient is a thin female awake, alert. Mildly congested but in no acute distress. Vital Signs: She is currently afebrile. Blood pressure is 108/67, respiratory rate is 18, O2 saturation is 96% on 2 L nasal cannula. HEENT: Normocephalic, atraumatic. Neck: Supple. Heart: Irregularly irregular. S1, S2. Chest: Bilateral rhonchi throughout with scattered crackles. Abdomen: Soft. Bowel sounds are positive. Extremities: No cyanosis or edema. LABORATORIES: WBC 5, hemoglobin 9.9, hematocrit 30.9 with a platelet count of 159,000, INR 1.13. Initial chemistries; sodium is 130, potassium 2.8 with an initial lactate of 5, subsequent lactate is 1.5, repeat sodium 135, potassium 3.8. Mild elevated AST is 44. Chest CT again as noted reveals a right lower lobe infiltrate, right superior segment consolidation with air bronchograms. There is a small pericardial effusion. Marked multichamber cardiomegaly. A 0.9-cm subpleural opacity in the right upper lobe and a borderline fusiform. Aneurysmal dilatation of the ascending aorta 4.4 cm. Bilateral flank subcutaneous edema. IMPRESSION: 1. Acute respiratory distress. 2. Acute Hypoxic respiratory failure secondary to 3. Right lower lobe infiltrate, consolidation likely pneumonia community acquired. 4. Right upper lobe opacity likely post inflammatory. 5. Congestive heart failure. 6. Atrial fibrillation status post recent permanent pacemaker. 7. Arteriosclerotic heart disease. 8. Hypertension. 9. Hyperlipidemia. 10. History of cerebrovascular accident with residual left-sided weakness. 11. Anemia. 12. Electrolyte imbalance. 13. Elevated lactate level, improved. 14. Abnormal liver function tests. PLAN: Antibiotic therapy. Obtain cultures. Supplemental O2. Inhaled bronchodilators. Monitor electrolytes. Replete electrolytes. Obtain follow up chest x-rays. Also obtain follow up chest CT in 4-6 weeks to confirm resolution of infiltrates. Legionella urinary antigen. Sputum for culture and sensitivity. Echocardiogram. Diuretics as per Cardiology. BRANDEE [address] M.D. [id number] MTDD
--- NOTE | 2019-10-23 16:28 | PN ---
Teaching Attending Note Name of Resident: Flaco Cummins ATTENDING PHYSICIAN STATEMENT I saw and evaluated the patient. I reviewed the resident's note and discussed the case with the resident. I agree with the resident's findings and plan as documented. SUBJECTIVE: Continued improvement in Cough and SOB. Fevers resolved. No CP/ hemoptysis. OBJECTIVE: Afebrile, Hemodynamically Stable. AAO x 2 (baseline mental status unclear) Last Vital Signs Temp Pulse Resp BP Pulse Ox 98.2 F 60 18 110/62 96 10/23/19 15:16 10/23/19 15:16 10/23/19 11:00 10/23/19 15:16 10/23/19 11:00 Heart - S1, S2, SM Lungs - few bilateral crackles (improved from yesterday). Abdomen - Soft non-tender. Bowel Sounds normal. Extremities - no edema, no calf tenderness. Neuro - AAO x 2. Mild LLE weakness. Laboratory Results - last 24 hr 10/23/19 10/23/19 10/23/19 07:10 07:10 07:10 WBC 3.8 L RBC 3.75 Hgb 9.7 L Hct 29.7 L MCV 79.3 L MCH 25.7 MCHC 32.5 RDW 19.7 H Plt Count 170 MPV 8.1 D PT with INR 14.40 H INR 1.22 H PTT (Actin FS) 39.8 H Sodium 132 L Potassium 3.3 L Chloride 95 L Carbon Dioxide 32 Anion Gap 6 L BUN 9.3 Creatinine 0.4 L Est GFR (CKD-EPI)AfAm 116.44 Est GFR (CKD-EPI)NonAf 100.47 Random Glucose 87 Calcium 8.4 L Magnesium 2.1 Total Bilirubin 0.6 AST 42 H ALT 25 Alkaline Phosphatase 139 H Total Protein 6.8 Albumin 3.0 L Current Medications Generic Name Dose Route Start Last Admin Trade Name Freq PRN Reason Stop Dose Admin Albuterol/Ipratropium 1 amp 10/20/19 20:45 Duoneb - NEB Q4H PRN SHORTNESS OF BREATH Amlodipine Besylate 10 mg 10/21/19 10:00 10/23/19 09:46 Norvasc - PO 10 mg DAILY MARCELLO Administration Atorvastatin Calcium 10 mg 10/21/19 22:00 10/22/19 21:45 Lipitor - PO 10 mg HS MARCELLO Administration Enoxaparin Sodium 50 mg 12/16/19 12:00 Lovenox - SQ BID [facility] Ferrous Sulfate 325 mg 10/24/19 10:00 Feosol - PO DAILY MARCELLO Furosemide 20 mg 10/24/19 10:00 Lasix - PO DAILY [facility] Hydralazine HCl 10 mg 10/21/19 06:00 10/23/19 14:37 Apresoline - PO 10 mg TID MARCELLO Administration Azithromycin 500 mg in 250 mls @ 250 mls/hr 10/21/19 10:00 10/23/19 10:59 Zithromax 500mg Ivpb (Pre-Docked) IVPB 250 mls/hr DAILY MARCELLO Administration Ceftriaxone Sodium 1 gm/ 50 mls @ 100 mls/hr 10/21/19 17:00 10/23/19 09:45 Dextrose IVPB 100 mls/hr DAILY MARCELLO Administration Protocol Isosorbide Dinitrate 5 mg 10/22/19 10:00 10/23/19 10:07 Isordil - PO 5 mg BIDISORDIL MARCELLO Administration Lorazepam 1 mg 10/21/19 01:23 10/23/19 09:46 Ativan - PO 1 mg BID PRN Administration ANXIETY Losartan Potassium 100 mg 10/21/19 10:00 10/23/19 09:47 Cozaar - PO 100 mg DAILY MARCELLO Administration Metoprolol Tartrate 25 mg 10/21/19 10:00 10/23/19 09:46 Lopressor - PO 25 mg BID MARCELLO Administration Warfarin Sodium 7.5 mg 10/23/19 18:00 Coumadin - PO 10/23/19 18:01 ONCE@1800 ONE Home Medications Medication Instructions Recorded Amlodipine Besylate [Norvasc -] 10 mg PO DAILY 10/20/19 Furosemide [Lasix] 20 mg PO DAILY 10/20/19 Losartan Potassium [Cozaar] 100 mg PO DAILY 10/20/19 Metoprolol Tartrate 25 mg PO BID 10/20/19 Potassium Chloride 20 meq PO BID 10/20/19 Simvastatin [Zocor] 20 mg PO HS 10/20/19 Warfarin Na [Coumadin] 5 mg PO ASDIR 10/20/19 Warfarin Sodium [Coumadin] 7.5 mg PO ASDIR 10/20/19 hydrALAZINE HCL [Apresoline -] 10 mg PO TID 10/20/19 LORazepam [Lorazepam] 1 mg PO BID PRN 10/21/19 ASSESSMENT/PLAN: 79 year old female with history of Atrial fibrillation, HTN, CVA with residual L sided weakness, HLD, s/p PPM, presents with several day history of generalized weakness, cough, sputum, dyspnea. CT Chest - approximately 3 x 2.3 cm opacity containing air bronchograms is seen within the superior segment of the right lower lobe. Additional mild patchy opacities seen within the basilar segments of the right lower lobe consistent with infiltrates 1. Sepsis secondary to CAP Wean off Supplemental O2, Continue IV Ceftriaxone/Azithromycin Lactic Acidosis resolved. Urine Legionella Ag negative. Flu neg Blood Cx negative 3-[address] imaging recommended to ensure resolution of infiltrate. 2. Atrial Fibrillation, on AC with Coumadin. INR subtherapeutic. Coumadin 7.5mg today and INR check in AM Bridge with Lovenox. 3. Hypokalemia sec to aggressive IV hydration - repleted. 4. Fluid overload, likely sec to fluid resuscitation due to sepsis management - improved s/p IV Lasix 10/22 Echo pending ?LV function. 5. Hx CVA with residual L sided weakness - on Coumadin and Statin. 6. HTN - controlled on home meds Norvasc, Hydralazine, Losartan, Lopressor, Isordil. Will monitor. 7. Mild elevation in AST. CT shows hepatic congestion and distension of hepatic veins and robbin-hepatic ascites. Abdo US - fatty liver, Hepatitis panel negative. On Statin. Monitor LFTs. 8. Small pericardial effusion on CT and bedside Echo by ED staff, awaiting official TTE 9. RUL Subpleural opacity, incidental finding on CT - for 3 month follow up. Will consult Pulm for further work-up ? Bronch vs TTBx. 10. Ascending Aortic Aneurysm 4cm, incidental finding. Cardiothoracic Sx referral after acute PNA is over. 11. L Renal non-obstructing Calculus, incidental finding on CT, R Upper Pole Cyst on US - for outpatient Urology follow up. 12. Dilated Pul Artery (indicative of possible high pulmonary artery pressure). Echo and Pulm eval requested. Pulm follow up as out-patient. 13. Iron Deficiency Anemia, etiology unclear. Iron Sat 5% No evidence of acute blood loss. FOBT negative. Start FeSO4 supplementation. DVT Px - On Coumadin with Lovenox SQ bridging
[2019-10-23 16:44] VITALS: BMI 19.2
[2019-10-23] MEDS: ALBUTEROL SO4 2.5/IPRATROPIUM 0.5 INH SOL 3 ML VIAL.NEB. NEB PRN ×2 (17:16→21:00)
[2019-10-23] MEDS ORDERED: PROCHLORPERAZINE MALEATE 5 MG TABLET PO ONE (17:45)
[2019-10-23] MEDS ORDERED: WARFARIN NA 7.5 MG TABLET (FP) PO ONE (18:00)
[2019-10-23] MEDS ORDERED: PT OWN MED DRAWER 7, Y5N ONE (18:06)
[2019-10-23] MEDS: ATORVASTATIN CA 10 MG TABLET (FP) PO SCH (21:46)
[2019-10-23] MEDS: ENOXAPARIN NA (PORCINE) 60 MG/0.6 ML DISP.SYRIN SQ SCH (21:46)
[2019-10-23] MEDS: FERROUS SO4 325 MG TABLET (FP) PO SCH (21:46)
[2019-10-24 05:43] VITALS: PULSE 61
[2019-10-24] MEDS: hydrALAZINE HCL 10 MG TABLET PO SCH ×2 (06:29→14:09)
[2019-10-24 08:02] LABS: HEMATOCRIT 31.3 % (32.4-45.2); HEMOGLOBIN 9.9 GM/dL (10.7-15.3); MCH 25.6 pg (25.7-33.7); MCHC 31.8 g/dl (32.0-36.0); MEAN CELL VOLUME 80.6 fl (80-96); MEAN PLT VOLUME 8.7 fl (7.5-11.1); PLATELET COUNT 170 K/MM3 (134-434); RBC 3.88 M/mm3 (3.60-5.2); WHITE BLOOD COUNT 3.5 K/mm3 (4.0-10.0)
[2019-10-24 08:31] LABS: INR 1.47 (0.83-1.09); PROTHROMBIN TIME (PATIENT) 17.4 SEC (9.7-13.0)
[2019-10-24 08:34] LABS: ACTIVATED PTT 43.5 SECONDS (25.2-36.5)
[2019-10-24 08:40] LABS: CALCIUM 8.9 mg/dL (8.5-10.1); CREATININE 0.4 mg/dL (0.55-1.3); MAGNESIUM 2.1 mg/dL (1.8-2.4); POTASSIUM 3.8 mmol/L (3.5-5.1)
[2019-10-24] MEDS ORDERED: PT OWN MED DRAWER 7, Y5N ONE ×2 (09:48→16:55)
[2019-10-24] MEDS ORDERED: DEXTROSE 5%-WATER - 50 ML IVPB ONE (09:49)
[2019-10-24] MEDS ORDERED: cefTRIAXone SODIUM 1 GM VIAL ONE (09:49)
[2019-10-24] MEDS ORDERED: FUROSEMIDE 20 MG TABLET (FP) PO SCH (10:00)
[2019-10-24] MEDS ORDERED: FERROUS SO4 325 MG TABLET (FP) PO SCH (10:00)
[2019-10-24] MEDS: ENOXAPARIN NA (PORCINE) 60 MG/0.6 ML DISP.SYRIN SQ SCH (10:02)
[2019-10-24] MEDS: CEFTRIAXONE 1 GM in DEXTROSE 5%-WATER - 50 ML IVPB SCH (10:02)
[2019-10-24] MEDS: amLODIPine BESYLATE 10 MG TABLET (FP) PO SCH (10:02)
[2019-10-24] MEDS: FERROUS SO4 325 MG TABLET (FP) PO SCH (10:03)
[2019-10-24] MEDS: ISOSORBIDE DINITRATE 5 MG TABLET PO SCH ×2 (10:04→17:55)
[2019-10-24] MEDS: AZITHROMYCIN IVPB 500 MG/250 ML BAG IVPB SCH (10:05)
--- NOTE | 2019-10-24 10:18 | ECHO ---
Version: 1 Name: RUBENS QUINTANILLA Exam: Adult Echocardiogram Study Date: 10/24/2019, 8:57 AM Age: 79 Years MMode/2D Measurements & Calculations IVSd: 1.06 cm LVIDs: 3.1 cm LVIDd: 4.8 cm LVPWd: 1.15 cm ACS: 1.65 cm Ao root diam: 2.8 cm LVOT diam: 1.79 cm LA dimension: 5.1 cm Doppler Measurements & Calculations MV E max otilio: 106.6 cm/sec Med E/e': 15.0 MV A max otilio: 84.9 cm/sec Med Peak E' Otilio: 7.1 cm/sec MV E/A: 1.26 Lat E/e': 10.3 Lat Peak E' Otilio: 10.3 cm/sec MR max P.3 mmHg Ao max P.5 mmHg MOSES(I,D): 1.71 cm Ao mean P.5 mmHg LV V1 mean: 76.2 cm/sec Ao V2 max: 169.7 cm/sec LV V1 mean P.6 mmHg AI P1/2t: 997.7 msec PI end-d otilio: 157.5 cm/sec TR max otilio: 331.7 cm/sec TR max P.5 mmHg Left Ventricle Mild concentric LVH with normal LV function. The EF is 57%. Abnormal diastolic compliance. Right Ventricle Normal RV size and function. Atria Moderate Left Atrial Enlargement. Severe Right Atrial Enlargement. Mitral Valve Thickened Mitral Valve with moderate MR. Tricuspid Valve Thickened Tricuspid Valve with severe TR. The PASP is 58 mmHg. Aortic Valve Fibrocalcific changes of the Aortic Valve without Aortic Stenosis. Mild to moderate Aortic Valve regurgitation, with a P1/2 of 994 ms. Pulmonic Valve The pulmonic valve is not well seen, but is grossly normal. Moderate pulmonic valvular regurgitation . Great Vessels The aortic root is normal size. Pericardium/Pleura Small pericardial effusion seen mostly around the RA and RV. Summary Statements Mild concentric LVH with normal LV function. The EF is 57%. Abnormal diastolic compliance. Normal RV size and function. Moderate Left Atrial Enlargement. Severe Right Atrial Enlargement. Thickened Mitral Valve with moderate MR. Thickened Tricuspid Valve with severe TR. Fibrocalcific changes of the Aortic Valve without Aortic Stenosis. Mild to moderate Aortic Valve regurgitation, with a P1/2 of 994 ms. Small pericardial effusion seen mostly around the RA and RV. The PASP is 58 mmHg. MD David Cao 10/24/2019, 10:17 AM Ordering Physician: Sulaiman Wheeler Referring Physician: SULAIMAN WHEELER Performed By: Jessica Simon
[2019-10-24] MEDS: LOSARTAN POTASSIUM 50 MG TABLET (FP) PO SCH (10:19)
[2019-10-24] MEDS: METOPROLOL TARTRATE 25 MG TABLET (FP) PO SCH (10:19)
--- NOTE | 2019-10-24 10:59 | PN ---
Progress Note, Physician Chief Complaint: Complains of productive cough History of Present Illness: Patient was seen and examined. Awake and alert. Chart was reviewed Denies chest pain Pulse appears hyperdynamic Echocardiography report noted with moderate left atrial dilation, severe RA dilation, moderate MR, severe TR, mild to moderate AR with normal LVEF and small pericardial effusion. There appears to be no report on vegetations. - Current Medication List Current Medications: Active Medications Albuterol/Ipratropium (Duoneb -) 1 amp NEB Q4H PRN PRN Reason: SHORTNESS OF BREATH Last Admin: 10/23/19 21:00 Dose: 1 amp Amlodipine Besylate (Norvasc -) 10 mg PO DAILY [facility] Last Admin: 10/24/19 10:02 Dose: 10 mg Atorvastatin Calcium (Lipitor -) 10 mg PO HS [facility] Last Admin: 10/23/19 21:46 Dose: 10 mg Enoxaparin Sodium (Lovenox -) 50 mg SQ BID [facility] Last Admin: 10/24/19 10:02 Dose: 50 mg Ferrous Sulfate (Feosol -) 325 mg PO BID [facility] Last Admin: 10/24/19 10:03 Dose: 325 mg Furosemide (Lasix -) 20 mg PO DAILY [facility] Last Admin: 10/24/19 10:02 Dose: 20 mg Hydralazine HCl (Apresoline -) 10 mg PO TID [facility] Last Admin: 10/24/19 06:29 Dose: 10 mg Azithromycin (Zithromax 500mg Ivpb (Pre-Docked)) 500 mg in 250 mls @ 250 mls/ hr IVPB DAILY [facility] Last Admin: 10/24/19 10:05 Dose: 250 mls/hr Ceftriaxone Sodium 1 gm/ (Dextrose) 50 mls @ 100 mls/hr IVPB DAILY [facility]; Protocol Last Admin: 10/24/19 10:02 Dose: 100 mls/hr Isosorbide Dinitrate (Isordil -) 5 mg PO BIDISORDIL [facility] Last Admin: 10/24/19 10:04 Dose: 5 mg Lorazepam (Ativan -) 1 mg PO BID PRN PRN Reason: ANXIETY Last Admin: 10/23/19 09:46 Dose: 1 mg Losartan Potassium (Cozaar -) 100 mg PO DAILY [facility] Last Admin: 10/24/19 10:19 Dose: 100 mg Metoprolol Tartrate (Lopressor -) 25 mg PO BID [facility] Last Admin: 10/24/19 10:19 Dose: 25 mg Warfarin Sodium (Coumadin -) 7.5 mg PO ONCE@1800 ONE Stop: 10/24/19 18:01 - Objective Vital Signs: Vital Signs Temperature 97.6 F 10/24/19 05:42 Pulse Rate 61 10/24/19 05:42 Respiratory Rate 20 10/24/19 05:42 Blood Pressure 142/81 10/24/19 05:42 O2 Sat by Pulse Oximetry (%) 96 10/23/19 21:45 Eyes: Yes: PERRL HENT: Yes: Atraumatic Neck: Yes: Supple Cardiovascular: Yes: Pulse Irregular, Murmur (SM), S1, S2, Other (Hyperdynamic) Respiratory: Yes: Diminished Gastrointestinal: Yes: Normal Bowel Sounds, Soft. No: Tenderness Edema: No Additional Findings/Remarks: - Review of Systems Constitutional: denies: Chills, Fever Cardiovascular: denies Chest Pain, Shortness of Breath. denies: Palpitations Respiratory: denies SOB, SOB on Exertion. denies: Cough, Hemoptysis, Orthopnea , PND Gastrointestinal: denies: Abdominal Pain, Constipation, Diarrhea, Melena, Nausea , Rectal Bleeding, Vomiting Genitourinary: denies Dysuria. denies: Hematuria Neurological: denies: Dizziness, Headache, Seizure, Syncope Labs: CBC, BMP 10/24/19 07:20 10/24/19 07:20 INR, PTT INR 1.47 (0.83-1.09) H 10/24/19 07:20 - ....Imaging Chest X-ray: Report Reviewed Problem List - Problems (1) ASHD (arteriosclerotic heart disease) Code(s): I25.10 - ATHSCL HEART DISEASE OF [place] CORONARY ARTERY W/O ANG PCTRS (2) Afib Code(s): I48.91 - UNSPECIFIED ATRIAL FIBRILLATION (3) Anemia Code(s): D64.9 - ANEMIA, UNSPECIFIED (4) H/O: CVA (cerebrovascular accident) Code(s): Z86.73 - PRSNL HX OF TIA (TIA), AND CEREB INFRC W/O RESID DEFICITS (5) HTN (hypertension) Code(s): I10 - ESSENTIAL (PRIMARY) HYPERTENSION (6) S/P placement of cardiac pacemaker Code(s): Z95.0 - PRESENCE OF CARDIAC PACEMAKER (7) Pneumonia Code(s): J18.9 - PNEUMONIA, UNSPECIFIED ORGANISM (8) Tricuspid valve regurgitation Code(s): I07.1 - RHEUMATIC TRICUSPID INSUFFICIENCY Qualifiers: Cardiac valve disease etiology: nonrheumatic Qualified Code(s): I36.1 - Nonrheumatic tricuspid (valve) insufficiency (9) Mitral valve regurgitation Code(s): I34.0 - NONRHEUMATIC MITRAL (VALVE) INSUFFICIENCY Qualifiers: Cardiac valve disease etiology: nonrheumatic Qualified Code(s): I34.0 - Nonrheumatic mitral (valve) insufficiency Assessment/Plan 1. Clinical presentation suggested sepsis with pneumonia, low suspicion for endocarditis 2. Acute on chronic LV failure diastolic 3. HTN 4. Anemia 5. Mitral valve and tricuspid valve regurgitations 6. Aortic valve regurgitations 7. Sick sinus syndrome s/p PPM 8. Atrial fibrillation PLAN: 1. Echocardiography report noted. Images to be reviewed for any evidence of vegetation. If clinical suspicion is deemed high, will need further work up, otherwise continue with current antibiotic coverage for pneumonia. Clinically does not appear to be highly suspicious for vegetation 2. Continue current cardiac therapy including Metoprolol 25 mg BID, Losartan 100 mg QD, Amlodipine 10 mg QD, Hydralazine 10 mg TID and Isordil 5 mg BID 3. Continue Furosemide 20 mg QD and monitor renal function and electrolytes 4. Continue Atorvastatin 10 mg QHS 5. Anticoagulation with Warfarin and maintain INR 2-3 (still remains subtherapeutic) - Patient was given increased dose of Warfarin but will need close follow up of INR as outpatient 6. PPM interrogation as outpatient Further plans are to follow Prashanth Keyes MD ADDENDUM: Review of echocardiography reveals small mobile echodensity attached to tricuspid valve leaflet which appears to flip between RA and RV with leaflet redundancy and suggestion of prolapse and severe torrential TR with both RA and RV dilation. Probable pressure overload on the LV with large RV dimension. This suggests torn chord rather than a vegetation. Currently, she does not appear to be in failure and does not appear to have sepsis symptoms, but will need further cardiac work up including SINCERE to better assess tricuspid valve and will need further valve intervention if clinically feasible. Spoke with granddaughter who states that patient had seen a fermentation engineer affiliated with [facility], but not sure when she was seen last. Offered to come to our office for further evaluation and input. Prashanth Keyes MD
--- NOTE | 2019-10-24 11:07 | PN ---
Progress Note (short form) - Note Progress Note: PULMONARY Still with nonproductive cough. Denies shortness of breath. Vital Signs Period Temp Pulse Resp BP Sys/Carr Pulse Ox Last 24 Hr 97.6 F-98.2 F 60-71 18-20 110-142/62-81 96-96 Gen: NAD at rest Heart: RRR Lung: decreased breath sounds at the bases Abd: soft, nontender Ext: no edema CBC, BMP 10/24/19 07:20 10/24/19 07:20 Active Medications Albuterol/Ipratropium (Duoneb -) 1 amp NEB Q4H PRN PRN Reason: SHORTNESS OF BREATH Last Admin: 10/23/19 21:00 Dose: 1 amp Amlodipine Besylate (Norvasc -) 10 mg PO DAILY [facility] Last Admin: 10/24/19 10:02 Dose: 10 mg Atorvastatin Calcium (Lipitor -) 10 mg PO HS [facility] Last Admin: 10/23/19 21:46 Dose: 10 mg Enoxaparin Sodium (Lovenox -) 50 mg SQ BID [facility] Last Admin: 10/24/19 10:02 Dose: 50 mg Ferrous Sulfate (Feosol -) 325 mg PO BID [facility] Last Admin: 10/24/19 10:03 Dose: 325 mg Furosemide (Lasix -) 20 mg PO DAILY [facility] Last Admin: 10/24/19 10:02 Dose: 20 mg Hydralazine HCl (Apresoline -) 10 mg PO TID [facility] Last Admin: 10/24/19 06:29 Dose: 10 mg Azithromycin (Zithromax 500mg Ivpb (Pre-Docked)) 500 mg in 250 mls @ 250 mls/ hr IVPB DAILY [facility] Last Admin: 10/24/19 10:05 Dose: 250 mls/hr Ceftriaxone Sodium 1 gm/ (Dextrose) 50 mls @ 100 mls/hr IVPB DAILY [facility]; Protocol Last Admin: 10/24/19 10:02 Dose: 100 mls/hr Isosorbide Dinitrate (Isordil -) 5 mg PO BIDISORDIL [facility] Last Admin: 10/24/19 10:04 Dose: 5 mg Lorazepam (Ativan -) 1 mg PO BID PRN PRN Reason: ANXIETY Last Admin: 10/23/19 09:46 Dose: 1 mg Losartan Potassium (Cozaar -) 100 mg PO DAILY [facility] Last Admin: 10/24/19 10:19 Dose: 100 mg Metoprolol Tartrate (Lopressor -) 25 mg PO BID [facility] Last Admin: 10/24/19 10: Dose: 25 mg Warfarin Sodium (Coumadin -) 7.5 mg PO ONCE@1800 ONE Stop: 10/24/19 18:01 A/P Pneumonia Sepsis Lactic Acidosis LV Diastolic/Systolic Dysfunction Pulmonary HTN Atrial Fibrillation CAD HTN Hyperlipidemia Hyponatremia Anemia - continue antibiotics - inhaled bronchodilators - O2 to keep SpO2 >90% - aspiration precautions - rate control - continue anticoagulation - outpt f/u of chest imaging to ensure resolution of infiltrates
--- NOTE | 2019-10-24 11:17 | PN ---
Teaching Attending Note Name of Resident: Flaco Cummins ATTENDING PHYSICIAN STATEMENT I saw and evaluated the patient. I reviewed the resident's note and discussed the case with the resident. I agree with the resident's findings and plan as documented. SUBJECTIVE: Continued improvement in Cough and SOB. Fevers resolved. No CP/ hemoptysis. OBJECTIVE: Afebrile, Hemodynamically Stable. AAO x 2 (baseline mental status unclear) Last Vital Signs Temp Pulse Resp BP Pulse Ox 97.6 F 61 20 142/81 96 10/24/19 05:42 10/24/19 05:42 10/24/19 05:42 10/24/19 05:42 10/23/19 21:45 Heart - S1, S2, SM Lungs - few bilateral crackles (improved). Abdomen - Soft non-tender. Bowel Sounds normal. Extremities - no edema, no calf tenderness. Neuro - AAO x 2. LLE weakness - Power 4/5. Laboratory Results - last 24 hr 10/24/19 10/24/19 10/24/19 07:20 07:20 07:20 WBC 3.5 L RBC 3.88 Hgb 9.9 L Hct 31.3 L MCV 80.6 MCH 25.6 L MCHC 31.8 L RDW 20.0 H Plt Count 170 MPV 8.7 PT with INR 17.40 H INR 1.47 H PTT (Actin FS) 43.5 H Sodium 135 L Potassium 3.8 Chloride 97 L Carbon Dioxide 31 Anion Gap 8 BUN 8.0 Creatinine 0.4 L Est GFR (CKD-EPI)AfAm 116.44 Est GFR (CKD-EPI)NonAf 100.47 Random Glucose 82 Calcium 8.9 Magnesium 2.1 Current Medications Generic Name Dose Route Start Last Admin Trade Name Freq PRN Reason Stop Dose Admin Albuterol/Ipratropium 1 amp 10/20/19 20:45 10/23/19 21:00 Duoneb - NEB 1 amp Q4H PRN Administration SHORTNESS OF BREATH Amlodipine Besylate 10 mg 10/21/19 10:00 10/24/19 10:02 Norvasc - PO 10 mg DAILY [facility] Administration Atorvastatin Calcium 10 mg 10/21/19 22:00 10/23/19 21:46 Lipitor - PO 10 mg HS [facility] Administration Enoxaparin Sodium 50 mg 10/23/19 12:00 10/24/19 10:02 Lovenox - SQ 50 mg BID [facility] Administration Ferrous Sulfate 325 mg 10/23/19 22:00 10/24/19 10:03 Feosol - PO 325 mg BID [facility] Administration Furosemide 20 mg 10/24/19 10:00 10/24/19 10:02 Lasix - PO 20 mg DAILY [facility] Administration Hydralazine HCl 10 mg 10/21/19 06:00 10/24/19 06:29 Apresoline - PO 10 mg TID [facility] Administration Azithromycin 500 mg in 250 mls @ 250 mls/hr 10/21/19 10:00 10/24/19 10:05 Zithromax 500mg Ivpb (Pre-Docked) IVPB 250 mls/hr DAILY [facility] Administration Ceftriaxone Sodium 1 gm/ 50 mls @ 100 mls/hr 10/21/19 17:00 10/24/19 10:02 Dextrose IVPB 100 mls/hr DAILY [facility] Administration Protocol Isosorbide Dinitrate 5 mg 10/22/19 10:00 10/24/19 10:04 Isordil - PO 5 mg BIDISORDIL [facility] Administration Lorazepam 1 mg 10/21/19 01:23 10/23/19 09:46 Ativan - PO 1 mg BID PRN Administration ANXIETY Losartan Potassium 100 mg 10/21/19 10:00 10/24/19 10:19 Cozaar - PO 100 mg DAILY [facility] Administration Metoprolol Tartrate 25 mg 10/21/19 10:00 10/24/19 10:19 Lopressor - PO 25 mg BID [facility] Administration Warfarin Sodium 7.5 mg 10/24/19 18:00 Coumadin - PO 10/24/19 18:01 ONCE@1800 ONE Home Medications Medication Instructions Recorded Amlodipine Besylate [Norvasc -] 10 mg PO DAILY 10/20/19 Furosemide [Lasix] 20 mg PO DAILY 10/20/19 Losartan Potassium [Cozaar] 100 mg PO DAILY 10/20/19 Metoprolol Tartrate 25 mg PO BID 10/20/19 Simvastatin [Zocor] 20 mg PO HS 10/20/19 Warfarin Sodium [Coumadin] 7.5 mg PO ASDIR 10/20/19 hydrALAZINE HCL [Apresoline -] 10 mg PO TID 10/20/19 LORazepam [Lorazepam] 1 mg PO BID PRN 10/21/19 Azithromycin 250 mg PO DAILY #3 tablet 10/24/19 Cefuroxime Axetil [Cefuroxime] 500 mg PO BID #6 tablet 10/24/19 Ferrous Sulfate [Feosol] 325 mg PO DAILY #30 tab 10/24/19 Isosorbide Dinitrate [Isordil] 5 mg PO BID #60 tablet 10/24/19 ASSESSMENT/PLAN: 79 year old female with history of Atrial fibrillation, HTN, CVA with residual L sided weakness, HLD, SSS s/p PPM, presents with several day history of generalized weakness, cough, sputum, dyspnea. CT Chest - approximately 3 x 2.3 cm opacity containing air bronchograms is seen within the superior segment of the right lower lobe. Additional mild patchy opacities seen within the basilar segments of the right lower lobe consistent with infiltrates 1. Sepsis secondary to CAP Weaned off Supplemental O2 Received 4 days IV Ceftriaxone/Azithromycin - medically stable for transition to oral Abx for total 7 days cephalosporin and 5 days Azithromycin Lactic Acidosis resolved. Urine Legionella Ag negative. Flu neg Blood Cx negative Echo - no vegetations (concern was raised due to bedside ED echo) 3-[address] imaging recommended to ensure resolution of infiltrate. 2. Atrial Fibrillation, on AC with Coumadin. INR still subtherapeutic. Give Coumadin 7.5mg today and INR check in AM No need for bridging on discharge 3. Hypokalemia sec to aggressive IV hydration - repleted. 4. Fluid overload, likely sec to fluid resuscitation due to sepsis management - improved s/p IV Lasix 10/22. Echo - normal EF 5. Hx CVA with residual L sided weakness - on Coumadin and Statin. 6. HTN - controlled on home meds Norvasc, Hydralazine, Losartan, Lopressor, Isordil. Will monitor. 7. Mild elevation in AST. CT shows hepatic congestion and distension of hepatic veins and robbin-hepatic ascites. Abdo US - fatty liver, Hepatitis panel negative. On Statin. Monitor LFTs. 8. Small pericardial effusion on CT and bedside Echo by ED staff, official TTE shows small pericardial effusion, no signs of tamponade. 9. RUL Subpleural opacity, incidental finding on CT - for 3 month follow up. Pulm consulted for further work-up ? Bronch vs TTBx as out-patient. 10. Ascending Aortic Aneurysm 4cm, incidental finding. Cardiothoracic Sx referral after acute PNA is over. 11. L Renal non-obstructing Calculus, incidental finding on CT, R Upper Pole Cyst on US - for outpatient Urology follow up. 12. Pulmonary Artery HTN. Echo confirms PA pressure 58mmHg. Cardio and Pulm follow up on DC. 13. Iron Deficiency Anemia, etiology unclear. Iron Sat 5% No evidence of acute blood loss. FOBT negative. Started on FeSO4 supplementation. 14. SSS s/p PPM 15. Valvular Heart Disease - moderate MR, severe TR, mild to moderate AR - Cardio follow up as out-patient. Medicaly stable for discharge with above follow up arangements. Abx, FeSO4 prescriptions sent.
--- NOTE | 2019-10-24 12:13 | DS ---
Physical Exam: SUBJECTIVE: Patient seen and examined at the bedside. Stated that she felt better and noted that her breathing improved. Endorsed a cough but was improved from the previous day. Denied cp, abd pain, n/v/c/d, fever, chills, headaches, dizziness, lightheadedness. OBJECTIVE: Vital Signs Period Temp Pulse Resp BP Sys/Carr Pulse Ox Last 24 Hr 97.6 F-98.2 F 60-71 18-20 110-142/62-81 96-96 PHYSICAL EXAM GENERAL: The patient is awake, alert, and fully oriented, in no acute distress. Pleasant HEAD: Normal with no signs of trauma. EYES: PERRL, extraocular movements intact, sclera anicteric, conjunctiva clear. ENT: Oropharynx clear without exudates, moist mucous membranes. NECK: Trachea midline, full range of motion, supple. LUNGS: Noted crackles at the bases, no wheezes, no accessory muscle use. HEART: Regular rate and rhythm, S1, S2 with systolic ejection murmur. ABDOMEN: Soft, nontender, nondistended, normoactive bowel sounds, no guarding, no rebound, no masses. EXTREMITIES: 2+ pulses, warm, well-perfused, no edema. NEUROLOGICAL: Cranial nerves II through XII grossly intact. 4/5 muscle strength on LLE. All other extremities 5/5 muscle strength. PSYCH: Normal mood, normal affect. SKIN: Warm, dry, normal turgor, no rashes or lesions noted. LABS Laboratory Results - last 24 hr 10/24/19 10/24/19 10/24/19 07:20 07:20 07:20 WBC 3.5 L RBC 3.88 Hgb 9.9 L Hct 31.3 L MCV 80.6 MCH 25.6 L MCHC 31.8 L RDW 20.0 H Plt Count 170 MPV 8.7 PT with INR 17.40 H INR 1.47 H PTT (Actin FS) 43.5 H Sodium 135 L Potassium 3.8 Chloride 97 L Carbon Dioxide 31 Anion Gap 8 BUN 8.0 Creatinine 0.4 L Est GFR (CKD-EPI)AfAm 116.44 Est GFR (CKD-EPI)NonAf 100.47 Random Glucose 82 Calcium 8.9 Magnesium 2.1 HOSPITAL COURSE: Cheryl Valderrama is a 79 female with a past medical history of Afib(on Coumadin) , HTN, 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 Patient was treated with ceftriaxone and azithromycin which were transitioned to oral antibiotics by day of discharge. Lactic acidosis from admission resolved. Patient had respiratory distress from admission and a CT chest which noted a pericardial effusion and cardiomegaly. Echocardiogram showed mild concentric LVH, abnormal diastolic compliance, moderate left atrial enlargement, severe right atrial enlargement, thickened mitral and tricuspid valves, moderate mitral regurg, severe tricuspid regurg, fibrocalcific changes to the aortic valve, mild to moderate aortic valve regurg , small pericardial effusion, PASP 58mmHg. Cardiology was consulted and recommended that patient to continue cardiac therapy, monitor INR and dose coumadin appropriately, and to follow up with cardiology outpatient. Patient to follow up with INR check day after discharge to redose coumadin. Patient was found with normocytic anemia with low iron and low iron saturation. FOBT was negative and patient started on ferrous sulfate and to follow up with gastroenterology outpatient. Patient found with transaminitis, Hep B and C panels negative. RUQ ultrasound showing fatty liver vs hepatocellular disease, CT noting distension of hepatic veins and perihepatic ascites, and to follow up with gastroenterology outpatient. CT chest showing nodules vs atelectasis vs scarring noted on CT chest and patient to follow up with pulmonology outpatient and have repeat CT scan in 3-[address] noting Borderline fusiform aneurysmal dilation of ascending aorta 4cm, patient to follow up with cardiothoracic surgery outpatient. CT noting nonobstructing renal calculus, patient to follow up with urology outpatient. Patient is to have her repeat INR check the day after discharge to properly redose coumadin. Family was called and was explained the plan, was in agreement, and reiterated the plan. Patient was discharged in stable medical condition. Date of Admission:10/20/19 Date of Discharge: 10/24/19 Minutes to complete discharge: 35 Discharge Summary Problems reviewed: Yes Reason For Visit: CHF PNEUMONIA Current Active Problems ASHD (arteriosclerotic heart disease) (Chronic) Afib (Chronic) Anemia (Chronic) H/O: CVA (cerebrovascular accident) (Chronic) HTN (hypertension) (Chronic) S/P placement of cardiac pacemaker (Chronic) Valvular vegetation (Chronic) Condition: Improved - Instructions Diet, Activity, Other Instructions: You were admitted for a treatment of pneumonia. You were given antibiotics which you will need to complete as an outpatient. You had Chest CT performed which showed some abnormalities including some areas that were questionable for a mass. You should follow up with a zoology technical officer (lung doctor) and have a repeat chest CT in 3-4 months for these findings. You were also found to have some fluid around your heart. You had an echocardiogram which showed abnormal function of the heart, problems with the heart valves, and elevated pressures around the heart and in the lungs. You should follow up with a foundry manager ( heart doctor) for these findings. Additionally you were noted to have an enlargement of your aorta (main artery from the heart) and should follow up with a cardiothoracic surgeon for these findings. A kidney stone was found and you should follow up with a urologist (urinary system doctor) for these findings. You had elevated liver function tests while you were hospitalized and had an ultrasound of your liver which found some abnormalities in your liver and CT scan noted some abnormalities as well and should follow up with a rn case manager hospice (stomach, liver, intestine doctor). MEDICATIONS START taking azithromycin 250mg once daily for 1 days. Your last dose of azithromycin will be on October 25. START taking cefuroxime 500mg twice daily for 3 days. You last dose of cefuroxime will be on October 27. Make sure to take all of your antibiotics to completion. Do not stop taking antibiotics even when you start feeling better. START taking ferrous sulfate 325mg daily. REFERRALS Please see your primary care doctor, Dr. Fan tomorrow to get bloodwork to check your INR. Please see the foundry manager, Dr. Prashanth Keyes, within 1 week. Please see the zoology technical officer, Dr. Meir Pepe,, within 1 week. Please see the rn case manager hospice, Dr. Marvin Chadwick, within 1 week. Please see the urologist, Dr. Flaco Lomeli, within 1 week. Please see the cardiothoracic surgeon, Dr. David Carmona, within 1 week. SPECIAL INSTRUCTIONS You will need to have your INR blood checked tomorrow at your primary care doctor to determine how best to continue taking your Coumadin. Make sure to take all of your antibiotics and follow up with your doctors. If you have any symptoms of chest pain, shortness of breath, excessive cough, dizziness, lightheadedness, increased swelling of your legs, complete inability to lie flat, fevers, or any other general feelings of unwellness, please call 911 or go to your nearest emergency room. Referrals: Meir Balbuena MD [Staff Physician] - 1 Week Flaco Lomeli MD [Staff Physician] - 1 Week Prashanth Keyes MD [Staff Physician] - 1 Week David Carmona MD [Staff Physician] - 1 Week Marvin Chadwick MD [Staff Physician] - 1 Week Disposition: HOME - Home Medications Comprehensive Discharge Medication List: Ambulatory Orders Amlodipine Besylate [Norvasc -] 10 mg PO DAILY 10/20/19 Furosemide [Lasix] 20 mg PO DAILY 10/20/19 Losartan Potassium [Cozaar] 100 mg PO DAILY 10/20/19 Metoprolol Tartrate 25 mg PO BID 10/20/19 Simvastatin [Zocor] 20 mg PO HS 10/20/19 Warfarin Sodium [Coumadin] 7.5 mg PO ASDIR 10/20/19 hydrALAZINE HCL [Apresoline -] 10 mg PO TID 10/20/19 LORazepam [Lorazepam] 1 mg PO BID PRN 10/21/19 Azithromycin 250 mg PO DAILY #1 tablet 10/24/19 Cefuroxime Axetil [Cefuroxime] 500 mg PO BID #6 tablet 10/24/19 Ferrous Sulfate [Feosol] 325 mg PO DAILY #30 tab 10/24/19 Problem List - Problems (1) ASHD (arteriosclerotic heart disease) Code(s): I25.10 - ATHSCL HEART DISEASE OF [place] CORONARY ARTERY W/O ANG PCTRS (2) Afib Code(s): I48.91 - UNSPECIFIED ATRIAL FIBRILLATION (3) Anemia Code(s): D64.9 - ANEMIA, UNSPECIFIED (4) H/O: CVA (cerebrovascular accident) Code(s): Z86.73 - PRSNL HX OF TIA (TIA), AND CEREB INFRC W/O RESID DEFICITS (5) HTN (hypertension) Code(s): I10 - ESSENTIAL (PRIMARY) HYPERTENSION (6) Acute CHF Code(s): I50.9 - HEART FAILURE, UNSPECIFIED (7) Hypokalemia Code(s): E87.6 - HYPOKALEMIA (8) Pneumonia Code(s): J18.9 - PNEUMONIA, UNSPECIFIED ORGANISM This patient is new to me today: No Emergency Visit: Yes ED Registration Date: 10/20/19 Care time: The patient presented to the Emergency Department on the above date and was hospitalized for further evaluation of their emergent condition. Critical Care patient: No - Discharge Referral Referred to [facility] No
[2019-10-24 13:30] VITALS: BP 102/55; TEMP 97.9
[2019-10-24] MEDS ORDERED: WARFARIN NA 7.5 MG TABLET (FP) PO ONE ×2 (16:00→18:00)
== END 2019-10-24 18:48 | disposition home or self-care (01) | DRG 871 ==
LOC: JER 14:43 → JERBED 19:12 → J6S 23:54
PROVIDERS: ADMIT Internal Medicine
DX: A41.9 Sepsis, unspecified organism (principal); J18.9 Pneumonia, unspecified organism; I50.33 Acute on chronic diastolic (congestive) heart failure; J96.01 Acute respiratory failure with hypoxia; I69.354 Hemiplegia and hemiparesis following cerebral infarction affecting left non-dominant side; E87.2 Acidosis; E87.1 Hypo-osmolality and hyponatremia; R50.9 Fever, unspecified; I48.91 Unspecified atrial fibrillation; E78.5 Hyperlipidemia, unspecified; E87.6 Hypokalemia; E87.70 Fluid overload, unspecified; D50.9 Iron deficiency anemia, unspecified; I27.20 Pulmonary hypertension, unspecified; I11.0 Hypertensive heart disease with heart failure; I35.1 Nonrheumatic aortic (valve) insufficiency; I36.1 Nonrheumatic tricuspid (valve) insufficiency; I25.10 Atherosclerotic heart disease of native coronary artery without angina pectoris; R74.0 Nonspecific elevation of levels of transaminase and lactic acid dehydrogenase [LDH]; I34.0 Nonrheumatic mitral (valve) insufficiency
CPT/HCPCS: 36415; 71045-TC-FY; 71250-TC; 76604; 76705-TC; 80048; 80053; 80061; 80074; 81003; 82248; 82272; 82550; 82607; 82728; 82746; 82962; 83540; 83550; 83605; 83721; 83735; 83880; 83935; 84132; 84300; 84443; 84484; 85025; 85027; 85610; 85730; 87040; 87086; 87389; 87522; 87804; 87899; 93005; 93010; 93306-TC; 93308; 94640; 97116-GP; 97161-GP; 99285-25; J0131; J1644; J7030